=== PATIENT | male | born 1980 | race Caucasian/White ===

== ENCOUNTER 2024-01-26 17:25 | Emergency (ER) | payer BC, SELFPAY ==
--- NOTE | ~2024-01-26 | CT_ITS ---
EXAMINATION: CT ABDOMEN AND PELVIS WITHOUT CONTRAST CLINICAL INFORMATION: flank pain. COMPARISON: No pertinent prior studies are available for comparison. TECHNIQUE: Multidetector volumetric imaging was performed from the superior aspect of the liver through the pubic symphysis without contrast per renal stone protocol. Sagittal and coronal reformatted images were obtained on the technologist workstation. This CT examination was performed using dose optimization techniques as appropriate, variously including the following: *Automated exposure control *Adjustment of mA and/or kV according to patient size (this includes techniques or standardized protocols for targeted exams where dose is matched to indication/reason for exam; i.e. extremities or head) *Use of iterative reconstruction technique DLP: 800 mGy-cm. FINDINGS: LUNG BASES: The visualized lung bases are unremarkable. LIVER, GALLBLADDER, BILIARY TREE: The non-contrast liver is normal in size, shape, and attenuation. No focal hepatic lesion or biliary ductal dilatation is present. The gallbladder is contracted but otherwise unremarkable with no evidence of radiopaque gallstones, gallbladder wall thickening, or obvious pericholecystic inflammatory changes. PANCREAS: Unremarkable. SPLEEN: Unremarkable. ADRENAL GLANDS: Unremarkable. KIDNEYS AND URETERS: The kidneys are normal in size, shape, and attenuation. No hydronephrosis, hydroureter, or perinephric stranding. No calculi. BLADDER: Unremarkable. GASTROINTESTINAL TRACT: The small and large bowel are unremarkable. The appendix is unremarkable. ABDOMINAL WALL: No significant hernia is appreciated. Hernia mesh anchors seen anteriorly LYMPHOVASCULAR STRUCTURES: No lymphadenopathy. The aorta is unremarkable.. PELVIC VISCERA: Unremarkable. OSSEUS STRUCTURES: Unremarkable. CT/CT abdomen pelvis wo IV con IMPRESSION: No acute intra-abdominal process seen. No renal or ureteric calculi. No obstructive changes to the kidneys.
[2024-01-26 17:27] VITALS: BP 140/89; PULSE 110; RESP 17; TEMP 36.6; O2SAT 97; BMI 33.6
--- NOTE | 2024-01-26 17:27 | ED_ITS ---
HPI - General Adult General Chief complaint: Back Pain/Injury Stated complaint: right kidney pain Time Seen by Provider: 01/26/24 21:10 Source: patient, RN notes reviewed and old records reviewed Mode of arrival: ambulatory Limitations: no limitations History of Present Illness ED Provider: Jocelyne SHAW narrative: 43-year-old male presents for evaluation of right flank pain. He does state that his pain started on the left side and is now on the right side but no longer on the left. He reports he has to sleep on his side to improve the pain Patient believes he is having ?kidney pain. ? Said he has a long history of chronic back pain He reports that 1 or 2 times per year ?I threw my back out and can not move for a week. ? He states that he is having mild back pain complaint that my however his pain seems higher than usual He also reports that when he tries to urinate his pain seems to be worse Patient also reports that he has a history of difficulty urinating including ?getting up in the middle of the night at least 2 or 3 times to pee. ? He denies any numbness, tingling, weakness Denies any difficulty moving his bowels Patient states that he is going on vacation in about 10 days and wants to make sure he did not have a urine issue for going. He denies any fevers, chills, recent trauma Denies any heavy lifting He does note that his pain is worse with movement especially bending over Related Data Previous Rx's ?Medication ?Instructions ?Recorded dexamethasone 4 mg tablet 4 mg PO BID #6 tabs 01/26/24 tamsulosin 0.4 mg capsule 0.4 mg PO DAILY #21 caps 01/26/24 Allergies Allergy/AdvReac Type Severity Reaction Status Date / Time No Known Allergies Allergy Verified 01/26/24 17:31 Review of Systems 2 Constitutional: Constitutional: Denies body ache(s), Denies chills, Denies fever(s), Denies frequent falls and Denies headache(s) Eyes: Eyes: Denies blurry vision ENT: Denies vertigo, Denies headache(s), Denies neck pain and Denies sore throat Cardiovascular: Cardiovascular: Denies chest pain and Denies dyspnea Respiratory: Respiratory: Denies cough and Denies dyspnea Gastrointestinal: Gastrointestinal: Denies abdominal pain, Denies nausea and Denies vomiting Genitourinary: Genitourinary: Denies hematuria, Reports difficulty urinating, Denies genital pain, Denies dysuria, Reports flank pain, Reports nocturia and Denies testicular pain Musculoskeletal: Musculoskeletal: Reports back pain and Denies neck pain Integumentary/Breasts: Skin/Breast: Denies rash Neurologic: Denies vertigo, Denies frequent falls and Denies headache(s) PMFSH Social History Social History Do you have a plan to hurt others: No Plan Physical Exam ED Vital Signs: Vital Signs - 24 hr 01/26/24 17:27 Temperature 97.9 F Pulse Rate 110 H Respiratory Rate 17 Blood Pressure 140/89 H Pulse Oximetry 97 Oxygen Delivery Method Room Air BMI result Body Mass Index 33.6 Const General: healthy appearing, comfortable, no acute distress, alert and awake Nutritional Appearance: well nourished Orientation/consciousness: patient oriented x3 HENMT Head: Yes normocephalic and Yes atraumatic Eyes Eyelids: Yes eyelids normal Conjunctivae: conjunctivae normal Sclerae: sclerae normal Corneas: corneas normal Pupils: Equal, round and reactive pupils present EOM: EOMs intact bilaterally Neck Neck: Yes full ROM Resp Effort & Inspection: normal respiratory effort, able to speak in complete sentences and not labored Cardio Rate: regular rate Rhythm: regular rhythm GI Inspection: No distended Palpation (GI): Soft to palpation, not firm, nontender, no guarding and not rigid Back/Spine/Pelvis Other: Tenderness to the right lumbar sacral region. No spinal tenderness. No step- offs or deformities. Straight leg raise positive on the right. Skin General skin exam: elasticity normal Neuro General: patient oriented x3 Cranial nerves: Yes Equal, round and reactive pupils present and Yes Bilaterally intact EOM present Cognition (Neuro): normal cognition Motor exam (neuro): 5/5 motor strength present throughout Extrem Other: Moving all extremities well without any obvious deformities Course Course Course Narrative: RME performed by Kayleigh Henson PA-C. Patient is a 43 year old assigned male at presenting to the emergency department with right low back / flank pain. Patient states he has been having alternating low back pain and he is concerned about his kidneys. Detailed physical exam and review of systems are deferred to the nurse clinician. Labs and imaging ordered. Patient placed back in the waiting room pending room availability and results. Medical Decision Making Medical Decision Making MDM Narrative: 43-year-old male presents for evaluation of acute on chronic back pain. He was concerned that he had a kidney stone versus a urine infection. His workup was largely unremarkable. His pain seems most likely musculoskeletal in origin. The patient states he has had both back pain and urinary issues for several years. I have a very low suspicion for cauda equina syndrome as the patient is able to urinate, his strength is 5/5 bilaterally, he is ambulatory without any difficulty. There has been no trauma. His CT scan showed no acute pathology. I did discuss follow-up and that the patient may benefit from an outpatient lumbar MRI. I do not feel that he requires any emergent MRI at this time has had a low suspicion for cauda equina syndrome. The patient has had ongoing pain for years. We will treat his pain with dexamethasone and he will use [id number] medications. The patient is also willing to trial tamsulosin. He was given return precautions Differential Diagnosis Differential Diagnoses: The differential diagnosis associated with the presentation includes Acute on chronic back pain Sciatica Obstructive uropathy UTI Cauda equina syndrome less likely Lab Data [facility] Lab Attestation statement: I reviewed the patient's lab results. No leukocytosis or significant anemia. Normal platelet count. No left shift. No significant electrolyte abnormalities. The patient's BUN is just above normal at 17 but with a normal creatinine and normal GFR. Electrolytes within normal limits 01/26/24 17:53 01/26/24 17:53 Labs: Lab Results 01/26/24 01/26/24 Range/Units 17:53 19:03 WBC 8.0 (4.8-10.8) X10*3/uL RBC 4.45 L (4.60-5.80) X10*6/uL Hgb 14.3 (14.0-18.0) g/dl Hct 41.2 L (42.0-52.0) % MCV 92.6 (80.0-98.0) fL MCH 32.1 (27.0-33.0) pg MCHC 34.7 (31.0-36.0) g/dl RDW 13.2 (11.0-16.0) % Plt Count 377 (160-400) X10*3/uL MPV 9.1 L (9.4-12.4) fL Immature Gran % (Auto) 0.3 (0.0-0.4) % Neut % (Auto) 52.5 (45-73) % Lymph % (Auto) 30.4 (20-40) % [place] % (Auto) 11.1 H (2-11) % Eos % (Auto) 5.2 H (0-4) % Baso % (Auto) 0.5 (0-2) % Lymph # (Auto) 2.4 (1.2-4.9) X10*3/uL [place] # (Auto) 0.9 (0.1-1.2) X10*3/uL Eos # (Auto) 0.4 (0.0-0.4) X10*3/uL Baso # (Auto) 0.0 (0.0-0.2) X10*3/uL Abs Immat Gran (auto) 0.02 (0.00-0.03) X10*3/uL Absolute Neuts (auto) 4.2 (2.0-8.3) x10*3/uL Absolute Nucleated RBC 0.000 (0.0-0.012) X10*3/uL Nucleated RBC % (auto) 0.0 (0.0-0.2) /100WBC Sodium 141 (135-145) mmol/L Potassium 4.2 (3.3-5.1) mmol/L Chloride 107 (96-108) mmol/L Carbon Dioxide 23 (22-29) mmol/L Anion Gap 15 (12-20) BUN 17 H (9-16) mg/dL Creatinine 1.00 (0.5-1.4) mg/dL Estim Creat Clear Calc 136.2 Estimated GFR > 60 Random Glucose 115 (60-115) mg/dL Calcium 9.5 (8.4-10.2) mg/dL Magnesium 1.8 (1.6-2.6) mg/dL Total Bilirubin 0.2 (0.0-1.0) mg/dL AST 26 (5-37) U/L ALT 38 (0-40) U/L Alkaline Phosphatase 77 (39-117) U/L Total Protein 7.5 (6.5-8.0) g/dL Albumin 4.2 (3.5-5.0) g/dL Urine Color Yellow Urine Appearance Clear Urine pH 5.5 (5.0-9.0) Ur Specific [place] <= 1.005 (1.005-1.025) Urine Protein Negative (Neg-Trace) mg/dL Urine Glucose (UA) Negative (Negative) mg/dL Urine Ketones Negative (Negative) mg/dL Urine Blood Negative (Negative) Urine Nitrite Negative (Negative) Ur Leukocyte Esterase Negative (Negative) Influenza Type A (PCR) NEGATIVE (Negative) Influenza Type B (PCR) NEGATIVE (Negative) RSV RNA Qual (PCR) NEGATIVE (Negative) SARS-CoV-2 RNA (RT-PCR) NEGATIVE (Negative) Independent Interpretation I performed an independent interpretation of an: CT Scan Radiology Impression Discussion of test interpretation with radiology: I have reviewed the radiologist's reading. Radiologist Impression: CT/CT abdomen pelvis wo IV con IMPRESSION: No acute intra-abdominal process seen. No renal or ureteric calculi. No obstructive changes to the kidneys. Tests considered The following testing was considered but not selected: Discussed possible MRI of the lumbar spine but the patient's symptoms are not acute, and I have a low suspicion for cauda equina syndrome. The patient may follow-up with an outpatient lumbar MRI Discharge Plan Discharge Clinical Impression: Midline low back pain with right-sided sciatica Patient Disposition: Home, Self-Care Instructions: Acute Low Back Pain (ED) Additional Instructions: Your workup in the ER today was reassuring. Your urinalysis was clear without signs of blood or infection Your CT scan did not show any concerning abnormalities You may use Flomax daily to help with urine flow You may follow-up with Urology, Dr. King at the number provided regarding this For your back pain, I recommend taking dexamethasone twice daily for 3 days You may also use ibuprofen and Tylenol for pain Follow-up with a primary doctor when able You may benefit from an outpatient MRI due to your history of back pain Prescriptions: New dexamethasone 4 mg tablet 4 mg PO BID Qty: 6 0RF tamsulosin 0.4 mg capsule 0.4 mg PO DAILY Qty: 21 0RF Referrals: Cristi King MD [Physician] - (difficulty urinating, negative workup)
[2024-01-26 18:01] LABS: MANUAL DIFF FLAG NO
[2024-01-26 18:03] LABS: Basophils Percent Auto 0.5 % (0-2); Eosinophils Absolute Auto 0.4 X10*3/uL (0.0-0.4); Eosinophils Percent Auto 5.2 % (0-4); Hematocrit 41.2 % (42.0-52.0); Hemoglobin 14.3 g/dl (14.0-18.0); Imm Gran Abs Auto 0.02 X10*3/uL (0.00-0.03); Imm Gran Pct Auto 0.3 % (0.0-0.4); Lymphocytes Absolute Auto 2.4 X10*3/uL (1.2-4.9); Lymphocytes Percent Auto 30.4 % (20-40); Mean Corpuscular HGB Conc 34.7 g/dl (31.0-36.0); Mean Corpuscular Hemoglobin 32.1 pg (27.0-33.0); Mean Corpuscular Volume 92.6 fL (80.0-98.0); Mean Platelet Volume 9.1 fL (9.4-12.4); Monocytes Absolute Auto 0.9 X10*3/uL (0.1-1.2); Monocytes Percent Auto 11.1 % (2-11); Neutrophils Absolute Auto 4.2 x10*3/uL (2.0-8.3); Neutrophils Percent Auto 52.5 % (45-73); Platelet Count 377 X10*3/uL (160-400); Red Blood Count 4.45 X10*6/uL (4.60-5.80); Red Cell Distribution Width 13.2 % (11.0-16.0)
[2024-01-26 18:22] LABS: Alanine Aminotransferase 38 U/L (0-40); Albumin Level 4.2 g/dL (3.5-5.0); Alkaline Phosphatase 77 U/L (39-117); Anion Gap 15 (12-20); Aspartate Amino Transferase 26 U/L (5-37); Bilirubin Total 0.2 mg/dL (0.0-1.0); Blood Urea Nitrogen 17 mg/dL (9-16); Calcium 9.5 mg/dL (8.4-10.2); Carbon Dioxide 23 mmol/L (22-29); Chloride 107 mmol/L (96-108); Creatinine Clr Calc Pharmacy 136.2; Estimated Glomerular Filt Rate > 60; Glucose Random 115 mg/dL (60-115); Magnesium 1.8 mg/dL (1.6-2.6); Potassium 4.2 mmol/L (3.3-5.1); Sodium 141 mmol/L (135-145); Total Protein 7.5 g/dL (6.5-8.0)
[2024-01-26 18:52] LABS: Influenza A PCR NEGATIVE (Negative); Influenza B PCR NEGATIVE (Negative); Resp Syncy Virus RNA Qual PCR NEGATIVE (Negative); SARS COV2 PCR INHOUSE NEGATIVE (Negative)
[2024-01-26 19:18] LABS: Appearance Urine Clear; Color Urine Yellow; Glucose Urine UA Negative (Negative); Leukocyte Esterase Urine Negative (Negative); Nitrite Urine Negative (Negative); PH 5.5 (5.0-9.0); Specific Gravity - Urine <= 1.005 (1.005-1.025); Urine Blood Negative (Negative); Urine Ketones Negative (Negative); Urine Protein Negative (Neg-Trace)
--- NOTE | 2024-01-26 21:37 | PC.NURSE ---
Evaluated by cleared for [facility].
[2024-01-26 21:42] VITALS: BP 132/75; PULSE 89; RESP 18; TEMP 37.1; O2SAT 97
[2024-01-26 21:45] VITALS: BP 132/75; PULSE 89; RESP 18; TEMP 37.1; O2SAT 97
== END 2024-01-26 21:45 | disposition home or self-care (01) ==
LOC: HO.ED 21:42
PROVIDERS: Physician Assistant Medical; Emergency Provider Emergency Medicine
DX: M54.41 Lumbago with sciatica, right side (principal); N23 Unspecified renal colic; Z03.818 Encounter for observation for suspected exposure to other biological agents ruled out; Z79.899 Other long term (current) drug therapy
CPT/HCPCS: 0241U; 74176; 80053; 81003; 83735; 85025; 99283; 99284

== ENCOUNTER 2024-03-26 10:52 | Outpatient (AMB) | payer BC, SELFPAY ==
--- NOTE | 2024-03-26 10:56 | MHC.OFFVIS ---
Intake Visit Reasons: history of difficult urination Intake Note: Patient is present for HISTORY OF DIFFICULT URINATION Urology Medication:TAMSULOSIN Antibiotic Allergy:NONE Blood Thinner:NONE TODAY'S PVR:0ML'S Sprinkling System Irrigator Required: No Allergies No Known Allergies Allergy (Verified 04/05/24 11:26) HPI Comments Details: Mauri is a 44-year-old male who is here for evaluation for BPH symptoms. He complains of urinary frequency, hesitancy nocturia 2-3 times. AUA score 14. He denies dysuria or hematuria. I have discussed trial of tamsulosin. Discussed Avoid dietary bladder irritants, limit caffeine beverages. [facility] Medical History (Updated 04/25/24 @ 16:11 by Zahira Montesinos MD) Migraines Constipation Back injury ACL injury tear Arthritis Asthma Surgical History (Updated 04/05/24 @ 12:17 by Alex Lemons MA) History of repair of ACL History of hernia surgery History of knee surgery Family History (Updated 04/05/24 @ 12:21 by Alex Lemons MA) Mother Substance abuse Hypertension Cardiovascular disease Clotting disorder Lung cancer Alcoholism Father Substance abuse Hypertension High cholesterol Cardiovascular disease Alcoholism Maternal Grandfather Hypertension High cholesterol Cardiovascular disease Alcoholism Paternal Grandfather Hypertension High cholesterol Cardiovascular disease Alcoholism Mental health disorder Maternal Grandmother Cancer Paternal Grandmother Lung cancer Social History (Updated 04/05/24 @ 11:14 by Alex Lemons MA) Household Members: Significant Other and Other Both parents involved: No Caregiver staying overnight: No Housing: House Are you a primary animal care taker to a significant other at home: No Do you presently have visiting nurse or other home services: No 75 years or older and lives alone: No Alcohol intake: current Alcohol intake frequency: a few times a month Patient Tobacco Use Status: Never used Tobacco e-Cigarette/Vaping Use: Never Used service: No Current occupational status: employed 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 Cognitive needs: No Hearing needs: No Vision needs: Yes (wear glasses) Review of Systems Const All systems reviewed & are unremarkable except as noted in HPI and below Reports no additional complaints Eyes Reports no additional complaints ENT Reports no additional complaints Card Reports no additional complaints Resp Reports no additional complaints GI Reports no additional complaints Reports as per HPI Musc Reports no additional complaints Skin/Breast Reports system reviewed and no additional complaints, except as documented Neuro Reports no additional complaints Psych Reports no additional complaints Endo Reports no additional complaints Dennys/Lymph Reports no additional complaints Aller/Immun Reports no additional complaints Physical Exam Const General: healthy appearing, no acute distress and well developed Orientation/consciousness: patient oriented x3 HEENT Head: Yes normocephalic and Yes atraumatic Eyes Conjunctivae: conjunctivae normal Neck Neck: Yes normal visual inspection Chest Chest palpation & inspection: normal inspection of the chest Resp Effort & Inspection: normal respiratory effort Cardio Rate: regular rate GI Inspection: Yes normal to inspection Neuro General: patient oriented x3 Extrem General: No pedal edema Psych Appearance: grossly normal Affect: normal affect Office Procedures Post Void Residual Post Residual Void Post Void Residual (PVR): 0 [id number] Void Residual by ultrasound Assessment & Plan Assessment & Plan (1) BPH loc w urin obs/LUTS: Code(s): N40.1 - Benign prostatic hyperplasia with lower urinary tract symptoms Category: Medical (2) Nocturia: Code(s): R35.1 - Nocturia Category: Medical Plan tamsulosin. Avoid dietary bladder irritants, limit caffeine beverages. FU 6 months. Medications: Refilled tamsulosin 0.4 mg PO DAILY 90 caps 3RF Patient Instructions: The patient had an opportunity to ask questions regarding treatment plan. The patient expressed understanding and agreement with the above treatment plan. The patient is aware they should contact our office by phone for worsening of their current condition or the appearance of new symptoms. Compliance is encouraged with any medications and followup testing that is ordered. It is a privilege to be allowed the opportunity to participate in the urologic care of your patient. If you have any questions or concerns regarding treatment for the above conditions please do not hesitate to contact me. The office telephone contact is [phone]. This note is constructed in part using voice recognition software. While every effort has been made to ensure accuracy [facility] office supervisor errors may have been included. Yours sincerely, Zahira Montesinos MD Coding Level of Care Code New Pt Level 4 (39777) Diagnoses BPH loc w urin obs/LUTS N40.1 Nocturia R35.1 CPT Codes Post Residual Void - PVR CPT Code: 33012-Eely Void Residual by ultrasound ([id number])
== END 2024-03-26 11:47 | disposition home or self-care (01) ==
PROVIDERS: Visit Provider Urology
DX: N40.1 Benign prostatic hyperplasia with lower urinary tract symptoms (principal); R35.1 Nocturia
CPT/HCPCS: 99204

== ENCOUNTER → 2024-03-26 10:52 | Outpatient (BNVA) | payer BC, SELFPAY | PROVIDERS: Visit Provider Urology | DX: N40.1 Benign prostatic hyperplasia with lower urinary tract symptoms (principal); N13.8 Other obstructive and reflux uropathy; R35.1 Nocturia; Z79.899 Other long term (current) drug therapy | CPT/HCPCS: 51798 ==

== ENCOUNTER 2024-03-27 11:59 | Outpatient (AMB) | payer BC, SELFPAY ==
[2024-03-27 11:59] VITALS: BP 122/80; PULSE 75; TEMP 36.7; O2SAT 97
--- NOTE | 2024-03-27 11:59 | MHC.OFFWIV ---
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 Reports that yesterday he was cleaning his ears out and when he pulled the Q-tip how he thought there was some cotton missing from the end of the Q-tip. The ear itself feels fine. He was wants to make sure there is nothing stuck in his ear Exam Awake alert oriented, no acute distress External ear canal clear, a very small scab noted at the 9 o'clock position, TM is intact and clear, no foreign bodies. Plan Patient reassured that there was no foreign body present in the ear today. There is a small area that looks like perhaps trauma from the Q-tip itself. No further management is needed for this. PFSH Social History Patient Tobacco Use Status: Never used Tobacco Physical Exam Vital Signs: Last Vital Signs Temp 98.0 F 03/27/24 11:59 Pulse 75 03/27/24 11:59 BP 122/80 03/27/24 11:59 Pulse Ox 97 03/27/24 11:59 Assessment & Plan Assessment & Plan (1) Foreign body sensation in right ear canal: Code(s): R09.A9 - Foreign body sensation, other site Plan: . Coding Level of Care Code Est Pt Level 3 (77987) Diagnoses Foreign body sensation in right ear canal R09.A9
== END 2024-03-27 13:51 | disposition home or self-care (01) ==
PROVIDERS: Visit Provider Nurse Practitioner Family
DX: R09.A9 Foreign body sensation, other site (principal)

== ENCOUNTER 2024-04-05 11:01 | Outpatient (AMB) | payer BC, SELFPAY ==
--- NOTE | 2024-04-05 11:03 | A.OFFPC_ITS ---
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 Intake Note: new patient to establish care Allergies No Known Allergies Allergy (Verified 04/05/24 11:26) Medication List - Last Reconciled 04/05/24 by Ayesha Diaz, FLANGE MACHINE OPERATOR-BC dextroamphetamine-amphetamine 10 mg 1 tab PO DAILY dextroamphetamine-amphetamine 20 mg ER 1 cap PO QAM tamsulosin 0.4 mg PO DAILY Tobacco use date assessed: 04/05/24 Dental Screening Dental Screen Date: 04/05/24 Did you have a dental visit in the last 12 months?: Yes Did you have a dental problem in the last 6 months where you did not have access to dental care?: No Was dental information given to patient?: Patient has dentist HPI HPI Comments History of Present Illness Details 44 y/o M with nocturia, chronic low back pain, obesity, anemia, ADHD, GERD , mild intermittent asthma, osteoarthritis of hands and knees, migraine headaches s/p hernia repair with mesh 2012, corrective surgery to left knee, ACL repair left knee [facility] General Family history: Maternal grandfather with hypertension hyperlipidemia heart disease and alcoholism, maternal grandmother with blood cancer, mom with hypertension, cardiovascular disease, clotting disorder, lung cancer and alcoholism, paternal grand mother with lung cancer, paternal grandfather with hypertension, hyperlipidemia, heart disease, alcoholism and psychiatric disease, dad with high blood pressure hyperlipidemia heart disease and alcoholism Health Maintenance: Tdap 12/21/20 Flu 01/2024 HPV 1 vaccine after age 14, interested in completing course. Advised to complete at local pharmacy. Colon - referred for first colon today Specialist [facility] Here today to est care Previous PCP in [place] - PCP retired. No old records available. ADHD - active w outside prescriber. Endorses hx of trauma but does not disclose. Had counseling in the past. Interested in pursuing. GERD had one GI consult and did not f/u d/t COVID. s/p EGD and reports this was WNL. Was supposed to have stool sample done but did not get this done. If eats too fast, throws up. If eats slow or avoids triggers he does ok. Was rx PPI in the past, Otc, did not follow through. Has never had colon Numbness in big toes worse on R. Went to ED 01/2024 for low back pain. He reports always having back issues. The parasthesias of toes has been ongoing for some time. Describes as feeling holes in socks. Has never had back surgery. Has never had MRI for back. Denies red flag sx assoc w/ back pain. Migraines w/o aura, did see neuro in the past. Wears glasses. Trigger is dehydration, over exertion, etoh. Has never been on meds just OTC. Would like Rx Wakes at times w/ headaches. Has never had a sleep study. Would like to hold o ff right now. Exam Awake alert NAD PERRLA, EOMI, Glasses Neck FROM RRR LS CTAB, dim throughout Abd soft, nontender, normoactive BS x 4 No paraspinal or spinal tenderness w/ palpation, negative SLR bilat, normal strength and one of BLE, + PP bilat, No edema, abnormal sensation to bilat great toes otherwise normal sensation Anxious, scattered in thoughts, pleasant and cooperative Plan: Refer to counseling through community [facility] Start omprazole 40mg QD. Refer to GI for GERD and first screening colon Start imitrex PRN for headaches. COnsider sleep study. Screening labs today. MRI of L spine. HSV vaccine series completion at pharmacy RTO 6 weeks to fu on results of MRI and labs, sooner PRN This note is constructed using voice recognition software. While every effort has been made to ensure accuracy in cornetist, still errors may have been included Sometimes, these errors may affect the content or meaning of the given sentence . Total time spent caring for the patient today was 50 minutes. This includes time spent before the visit reviewing the chart, time spent during the visit, and time spent after the visit on documentation [facility] Medical History (Updated 04/05/24 @ 12:17 by Alex Lemons MA) Migraines Constipation Back injury ACL injury tear Arthritis Asthma Surgical History (Updated 04/05/24 @ 12:17 by Alex Lemons MA) History of repair of ACL History of hernia surgery History of knee surgery Family History (Updated 04/05/24 @ 12:21 by Alex Lemons MA) Mother Substance abuse Hypertension Cardiovascular disease Clotting disorder Lung cancer Alcoholism Father Substance abuse Hypertension High cholesterol Cardiovascular disease Alcoholism Maternal Grandfather Hypertension High cholesterol Cardiovascular disease Alcoholism Paternal Grandfather Hypertension High cholesterol Cardiovascular disease Alcoholism Mental health disorder Maternal Grandmother Cancer Paternal Grandmother Lung cancer Social History (Updated 04/05/24 @ 11:14 by Alex Lemons MA) Household Members: Significant Other and Other Both parents involved: No Caregiver staying overnight: No Housing: House Are you a primary certified social workers in health care to a significant other at home: No Do you presently have visiting nurse or other home services: No 75 years or older and lives alone: No Alcohol intake: current Alcohol intake frequency: a few times a month Patient Tobacco Use Status: Never used Tobacco e-Cigarette/Vaping Use: Never Used service: No Current occupational status: employed 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 1. Little interest or pleasure in doing things: several days 2. Feeling down, depressed, or hopeless: not at all 3. Trouble falling or staying asleep, or sleeping too much: not at all 4. Feeling tired or having little energy: not at all 5. Poor appetite or overeating: not at all 6. Feeling bad about yourself - or that you are a failure or have let yourself or your family down: not at all 7. Trouble concentrating on things, such as reading the newspaper or watching television: several days 8. Moving or speaking so slowly that other people could have noticed. Or the opposite - being so fidgety or restless that you have been moving around a lot more than usual: not at all 9. Thoughts that you would be better off or of hurting yourself in some way: not at all Total score: 2 Depression Screening Interpretation: Negative Depression Screening Done: Yes 61897 - PHQ-9 Billing: Yes Source: Developed by Drs. Fred De La Garza, Jenny Craig, Neal Collier and colleagues, with an educational klaus from [employer]. Thrive Questionnaire Date Thrive assessed: 04/05/24 I am a: Patient What is your living situation today?: I have a steady place to live Within the past 12 months, did the food you bought not last and you didn't have the money to get more?: Never true Within the past 12 months, did you worry whether your food would run out before you got money to buy more?: Never true Do you have trouble paying for medicines?: No Do you have trouble getting transportation to medical appointments?: No Do you have trouble paying your heating and electricity bill?: No Do you have trouble taking care of your child, family member or friend?: No Do you have trouble with day-to-day activities such as bathing, preparing meals, shopping, managing finances, etc.?: No Are you currently unemployed and looking for a job?: No Are you interested in more education?: I choose not to answer this question Please select the resources that you would like help with: None Currently or been in a relationship where the following occur: No concerns reported THRIVE Score: 0 AUDIT C Alcohol Use Questionnaire (AUDIT-C) 1. How often do you have a drink containing alcohol?: Monthly or less 2. How many drinks containing alcohol do you have on a typical day when you are drinking?: 1 or 2 3. How often do you have six or more drinks on one occasion?: Less than monthly Total Score: 2 Score Reviewed/Action Taken: Yes RONALDO-7 AMB Questionnaire RONALDO-7 Date RONALDO - 7 assessed: 04/05/24 Feeling nervous, anxious, or on edge: 1 = Several days Not being able to stop or control worryin = Not at all Worrying too much about different things: 1 = Several days Trouble relaxin = Not at all Being so restless that it is hard to sit still: 0 = Not at all Feeling afraid as if something awful might happen: 0 = Not at all Source: Developed by Drs. Fred De La Garza, Jenny Craig, Neal Collier and colleagues, with an educational klaus from [employer]. RONALDO-7 Assessment Billing RONALDO-7 Assessment Tool: RONALDO-7 Assessment 33192 Physical exam (Primary Care) Vital Signs: Last Vital Signs Pulse 91 04/05/24 11:10 Resp 15 04/05/24 11:10 BP 114/64 04/05/24 11:44 Pulse Ox 95 04/05/24 11:10 Oxygen Delivery Method Room Air 04/05/24 11:10 BMI result Body Mass Index 34.5 BMI Assessment/Plan discussion: High BMI High, discussed plan: lifestyle Tobacco/Smoking Status: Tobacco use Status Tobacco use date assessed 04/05/24 04/05/24 11:15 Patient Tobacco Use Status Never used Tobacco 04/05/24 11:14 e-Cigarette/Vaping Use Never Used 04/05/24 11:15 PHQ-9: PHQ-9 Score PHQ-9: Total score 2 04/05/24 12:21 Depression Screening Interpretation: Negative Thrive Assessment: Date of Thrive Assessment Date Thrive assessed 04/05/24 04/05/24 11:06 Currently or been in a relationship where the following occur: No concerns reported Coding Level of Care Code New Pt Level 4 (55526) Complex EM visit Add On G2211 Diagnoses Chronic midline low back pain without sciatica M54.50; G89.29 Back pain laterality: midline Sciatica presence: without sciatica Bilateral leg paresthesia R20.2 Attention deficit hyperactivity disorder (ADHD), predominantly inattentive type F90.0 Attention deficit-hyperactivity disorder type: predominantly inattentive Psychological trauma history Z91.49 Gastroesophageal reflux disease with esophagitis without hemorrhage K21.00 Esophagitis bleeding: without hemorrhage Esophagitis presence: with esophagitis Screen for colon cancer Z12.11 HPV vaccine counseling Z71.85 Migraine without aura and without status migrainosus, not intractable G43.009 Intractability: not intractable Status migrainosus presence: without status migrainosus Obesity, Class I, BMI 30.0-34.9 (see actual BMI) E66.811 BMI 34.0-34.9,adult Z68.34 Additional Codes RONALDO-7 Assessment Billing - RONALDO-7 Assessment Tool: RONALDO-7 Assessment 20079 ([id number]) Assessment & Plan Assessment & Plan (1) Chronic low back pain: Code(s): M54.50 - Low back pain, unspecified; G89.29 - Other chronic pain Category: Medical Qualifiers: Back pain laterality: midline Sciatica presence: without sciatica Qualified Code(s): M54.50 - Low back pain, unspecified; G89.29 - Other chronic pain Plan: . (2) Bilateral leg paresthesia: Code(s): R20.2 - Paresthesia of skin Category: Medical Plan: . (3) ADHD: Code(s): F90.9 - Attention-deficit hyperactivity disorder, unspecified type Category: Medical Qualifiers: Attention deficit-hyperactivity disorder type: predominantly inattentive Qualified Code(s): F90.0 - Attention-deficit hyperactivity disorder, predominantly inattentive type Plan: . (4) Psychological trauma history: Code(s): Z91.49 - Other personal history of psychological trauma, not elsewhere classified Category: Medical Plan: . (5) GERD (gastroesophageal reflux disease): Code(s): K21.9 - Gastro-esophageal reflux disease without esophagitis Category: Medical Qualifiers: Esophagitis bleeding: without hemorrhage Esophagitis presence: with esophagitis Qualified Code(s): K21.00 - Gastro-esophageal reflux disease with esophagitis, without bleeding Plan: . (6) Screen for colon cancer: Code(s): Z12.11 - Encounter for screening for malignant neoplasm of colon Category: Medical Plan: . (7) HPV vaccine counseling: Code(s): Z71.85 - Encounter for immunization safety counseling Category: Medical Plan: . (8) Migraine without aura: Code(s): G43.009 - Migraine without aura, not intractable, without status migrainosus Category: Medical Qualifiers: Intractability: not intractable Status migrainosus presence: without status migrainosus Qualified Code(s): G43.009 - Migraine without aura, not intractable, without status migrainosus Plan: . (9) Obesity, Class I, BMI 30.0-34.9 (see actual BMI): Code(s): E66.811 - Obesity, class 1 Category: Medical Plan: . (10) BMI 34.0-34.9,adult: Code(s): Z68.34 - Body mass index [BMI] 34.0-34.9, adult Category: Medical Plan: . Orders: Orders Comprehensive Met. Panel Today G89.29 - Other chronic pain, M54.50 - Low back pain, unspecified, R20.2 - Paresthesia of skin Microalbumin, Random (w Creat) Today G89.29 - Other chronic pain, M54.50 - Low back pain, unspecified, R20.2 - Paresthesia of skin PSA, Ultra Sensitive Today G89.29 - Other chronic pain, M54.50 - Low back pain, unspecified, R20.2 - Paresthesia of skin TSH reflex Free T4 Today G89.29 - Other chronic pain, M54.50 - Low back pain, unspecified, R20.2 - Paresthesia of skin Vitamin B12 and Folate Today G89.29 - Other chronic pain, M54.50 - Low back pain, unspecified, R20.2 - Paresthesia of skin Vitamin D 25-OH Total Today G89.29 - Other chronic pain, M54.50 - Low back pain, unspecified, R20.2 - Paresthesia of skin Complete Blood Count no Diff Today G89.29 - Other chronic pain, M54.50 - Low back pain, unspecified, R20.2 - Paresthesia of skin Hemoglobin A1c Today G89.29 - Other chronic pain, M54.50 - Low back pain, unspecified, R20.2 - Paresthesia of skin IRON PROFILE Today G89.29 - Other chronic pain, M54.50 - Low back pain, unspecified, R20.2 - Paresthesia of skin Lipid Panel Today G89.29 - Other chronic pain, M54.50 - Low back pain, unspecified, R20.2 - Paresthesia of skin MR lumbar spine wo con Today G89.29 - Other chronic pain, M54.50 - Low back pain, unspecified, R20.2 - Paresthesia of skin Referrals Nurse Navigator Referral F90.9 - Attention-deficit hyperactivity disorder, unspecified type, Z91.49 - Other personal history of psychological trauma, not elsewhere classified Gastroenterology Referral K21.9 - Gastro-esophageal reflux disease without esophagitis, Z12.11 - Encounter for screening for malignant neoplasm of colon Medications: New omeprazole 40 mg PO DAILY 90 caps 1RF sumatriptan succinate (Imitrex) take 1 tab at onset of headache; if no relief may repeat 1 tab after at least 2 hrs; max = 4 tabs/24 hr PO 10 tabs 2RF Patient Instructions: Walk-In Care (Urgent Care): We Make it Easy Walk-in for urgent medical issues such as: ? Seasonal Allergies ? Insect Bites ? Cough ? Diarrhea ? Acute Asthma Attacks ? Back, Knee or Joint Pain ? Ear Infection ? Fever without a Rash ? Headaches ? Nausea ? [place] Eye, Rash or Skin Irritation ? Sore Throat ? Sports Physicals ? Vomiting Most insurances are accepted. Patients do not need to be part of the [facility] to seek care at the walk-in clinic. Locations [address] [facility] , [place] [address] ? [phone] [facility] Walk-In Care in [place] provides services to ages 18 and over. Open Friday-Friday: 8 a.m. to 5 p.m. and Friday: 9 a.m. to 3 p.m.* *Hours may vary due to staffing availability. To confirm Walk-In Care hours in [place], please call [phone]. [address] [place] [address] ? [phone] [facility] Walk-In Care in [place] provides services to ages 12 and over. Open Friday-Friday: 8 a.m. to 5 p.m. Hours may vary due to staffing availability. To confirm Walk-In Care hours in [place], please call [phone]. LABORATORY SERVICES: [facility] Lab ? Primary Location [address] [place] [address] Friday through Friday 6:00 AM ? 5:00 PM Friday 7:00 AM ? 11:00 AM* [phone] [facility] Lab is centrally located near the front entrance of the [facility] for easy outpatient access. Convenient parking is provided for outpatients. *Hours may vary due to staffing availability. To confirm Laboratory hours for any location, please call [phone]. Offsite Location For your convenience, we offer offsite laboratory draw stations at the following locations: [address] [place] [address] ? [address], [address] [place] [address] Friday through Friday 7:30 AM ? 1:00 PM* [phone] *Hours may vary due to staffing availability. To confirm Laboratory hours for any location, please call [phone]. [place] ? [address] Friday through Friday 6:00 AM ? 3:30 PM* Friday 6:30 AM ? 3 PM* [phone] *Hours may vary due to staffing availability. To confirm Laboratory hours for any location, please call [phone]. [address] [facility] Friday through Friday 7:30 AM ? 4:00 PM* [phone] *Hours may vary due to staffing availability. To confirm Laboratory hours for any location, please call [phone]. [address] [facility] Friday through 9:00 AM ? 4:00 PM* *Hours may vary due to staffing availability. To confirm Laboratory hours for any location, please call [phone]. Appointments are not necessary. Walk-ins are welcome. Like all the departments throughout the [facility], our Lab undergoes frequent reviews to ensure the quality and accuracy of test results, and our staff takes special pride in its status as a nationally accredited facility. Patient Portal: ONE PATIENT. ONE RECORD. BETTER CARE. [facility] has a fully integrated, cutting- edge mobile electronic health information system that has revolutionized the way we care for our patients and manage our organization. This system improves communication and coordination enabling us to provide safe, higher-quality care, and an overall positive experience for staff and patients. Our first priority, as always, is to deliver the highest quality care possible. The system is running in the background supporting that priority. This portal is for all [facility] services and practices. If you are experiencing any technical difficulties with enrolling or logging into the Patient Portal please complete the [facility] Patient Portal Technical Support Form. [facility] now offers a new secure on-line interactive tool for patients to review their health information ? ?Patient Portal. This interactive web portal will enable patients and their families to take an active role in their care by providing easy, secure access to their health information via the internet. The Patient Portal provides patients with instant access to their health information, including laboratory results, medications, allergies, demographic information, visit history, and more. In addition to managing their own care, parents and health care proxies with authorized consent will appreciate the ability to access the records of those individuals for whom they provide care. Please note: if you wish to gain access (Proxy) to another patient?s portal, you will be required to come to the Medical Records Department in person at [facility]. Both the patient giving proxy access and the proxy will need to provide photo identification and complete the appropriate authorization. The Patient Portal also allows track their appointments online. The [facility] Patient Portal also saves patients time by allowing them to submit updates to their demographic and contact information prior to their visits. Portal email notifications will also alert patients to any new activity on their portal, such as test results and new appointments. In order to initially enroll in the [facility] Patient Portal, you will need to enter some required information including the following: * your [facility] Medical Record number * your personal home email address * name * date of Please note: In order to enroll in the [facility] Patient Portal, we need to have your email address on file in your electronic medical record. ?The email address needs to be specific for one person (yourself) in order for your Portal enrollment to be successful. ?You can update your email address in person with our Registration staff when you are registering for a hospital visit. ?Otherwise, you will need to come to the Health Information Management (Medical Records) Department at [facility]. ?We are open from Friday ? Friday from 7:30 a.m. ? 4:30 p.m. ?You will be required to present a photo id. Once you have successfully enrolled in the Patient Portal, you will receive a one-time user id and password for the Portal, sent to your email address. ?This will allow you to log into the Patient Portal within 99 hrs and reset your own logon id and password, and define personal security questions. ?Once your permanent login and password have been set, you can log into the [facility] Patient Portal at any time via the blue button above or from the Portal Logon button on any page of the [facility] website. [facility] encourage all of our patients to enroll in Patient Portal as it presents a valuable opportunity for patients and their families to actively participate in their care and stay healthy Welcome to [facility]. ?We look forward to working with you.
[2024-04-05 11:10] VITALS: BP 140/78; PULSE 91; RESP 15; O2SAT 95; BMI 34.5
[2024-04-05 11:44] VITALS: BP 114/64
== END 2024-04-05 11:53 | disposition home or self-care (01) ==
PROVIDERS: Visit Provider Nurse Practitioner Family
DX: M54.50 Low back pain, unspecified (principal); G89.29 Other chronic pain; R20.2 Paresthesia of skin; F90.0 Attention-deficit hyperactivity disorder, predominantly inattentive type; G43.009 Migraine without aura, not intractable, without status migrainosus; E66.811 Obesity, class 1; Z91.49 Other personal history of psychological trauma, not elsewhere classified; K21.00 Gastro-esophageal reflux disease with esophagitis, without bleeding; Z12.11 Encounter for screening for malignant neoplasm of colon; Z71.85 Encounter for immunization safety counseling; Z68.34 Body mass index [BMI] 34.0-34.9, adult

== ENCOUNTER → 2024-04-05 11:01 | Outpatient (BNVA) | payer BC, SELFPAY | PROVIDERS: Visit Provider Nurse Practitioner Family | DX: G89.29 Other chronic pain (principal); M54.50 Low back pain, unspecified; R20.2 Paresthesia of skin; F90.0 Attention-deficit hyperactivity disorder, predominantly inattentive type; K21.00 Gastro-esophageal reflux disease with esophagitis, without bleeding; G43.009 Migraine without aura, not intractable, without status migrainosus; E66.811 Obesity, class 1; Z68.34 Body mass index [BMI] 34.0-34.9, adult; Z91.49 Other personal history of psychological trauma, not elsewhere classified; Z71.85 Encounter for immunization safety counseling | CPT/HCPCS: 96127 ==

== ENCOUNTER 2024-05-21 08:24 | Outpatient (AMB) | payer BC, SELFPAY ==
--- NOTE | 2024-05-21 08:26 | A.OFFPC_ITS ---
Vital Signs 05/21/24 08:31 05/21/24 09:13 Height 6 ft 4 in Weight 283 lb BMI 34.4 BP 129/81 Blood Pressure Location Rt brachial Position Sitting Respiration 14 Pulse 102 H 90 Pulse Source Pulse Oximeter Auscultation Temp 96.6 F L Temp Source Skin Pulse Oximetry (%) 95 Oxygen Delivery Method Room Air Intake Visit Reasons: 6 weeks 30 min fu labs/MRI back Intake Note: follow up Print Color Matcher Required: No Allergies No Known Allergies Allergy (Verified 05/21/24 08:30) Medication List - Last Reconciled 05/21/24 by Ayesha Diaz, BIOMEDICAL REPAIR TECHNICIAN-BC dextroamphetamine-amphetamine 10 mg 1 tab PO DAILY dextroamphetamine-amphetamine 20 mg ER 1 cap PO QAM omeprazole 40 mg PO DAILY sumatriptan succinate (Imitrex) take 1 tab at onset of headache; if no relief may repeat 1 tab after at least 2 hrs; max = 4 tabs/24 hr PO tamsulosin 0.4 mg PO DAILY Tobacco use date assessed: 04/05/24 Dental Screening Dental Screen Date: 04/05/24 HPI HPI Comments History of Present Illness Details 44 y/o M with nocturia, chronic low back pain, obesity, anemia, ADHD, GERD , mild intermittent asthma, osteoarthritis of hands and knees, migraine headaches s/p hernia repair with mesh 2012, corrective surgery to left knee, ACL repair left knee Hospitalized for intussusception 2016 at [facility] Family history: Maternal grandfather with hypertension hyperlipidemia heart disease and alcoholism, maternal grandmother with blood cancer, mom with h ypertension, cardiovascular disease, clotting disorder, lung cancer and alcoholism, paternal grand mother with lung cancer, paternal grandfather with hypertension, hyperlipidemia, heart disease, alcoholism and psychiatric disease, dad with high blood pressure hyperlipidemia heart disease and alcoholism Health Maintenance: Tdap 12/21/20 Flu 01/2024 HPV 1 vaccine after age 14, interested in completing course. Advised to complete at local pharmacy. Colon - referred for first colon today Specialist [facility] History of Present Illness The patient is a 44-year-old male presenting with follow-up concerns for previous laboratory results and MRI. The patient has a history of Gastroesophageal Reflux Disease, for which he was started on Omeprazole. The patient reports that the medication is effective, as he has not experienced vomiting recently. Additionally, the patient has a history of migraines and was prescribed Imetrex, which he reports was highly effective in relieving headache symptoms. However, the patient has experienced difficulty in scheduling an MRI due to communication issues with the imaging center, as well as challenges with obtaining previously ordered laboratory tests. Further complicating the matter, the patient was referred to [facility] but missed an initial contact attempt from them. He expressed the need for an experienced counselor and discussed previous challenges in finding suitable mental health support. Review of Systems - Neurological System: Reports relief fr om migraines after using Imetrex. Reason for MRI: Numbness in big toes worse on R. Went to ED 01/2024 for low back pain. He reports always having back issues. The parasthesias of toes has been ongoing for some time. Describes as feeling holes in socks. Has never had back surgery. Has never had MRI for back. Denies red flag sx assoc w/ back pain. - Gastrointestinal System: Reports decre ase in vomiting symptoms with Omeprazole use. Exam Awake alert NAD PERRLA, EOMI, Glasses RRR LS CTAB, dim throughout Anxious, scattered in thoughts, pleasant and cooperative Plan - Gastroesophageal Reflux Disease: Dontae nue treatment with Omeprazole as the patient reports symptomatic relief. - Migraine: Continue Imetrex as it is ef fective in this patient's case. - Address the completion of pending labo ratory tests and MRI. Instruct patient to confirm the current status with the office staff. - Counseling referral updated for [facility], direct referral without intermediary group involvement, pending patient follow-up. Patient was informed and verbally consented to the use of an ambient scribe for clinic note documentation during this visit. Discussion Notes During the visit, I discussed the ongoing management of Gastroesophageal Reflux Disease with the patient, noting the positive response to Omeprazole. The treatment of migraines with Imetrex was also addressed, acknowledging its effectiveness. The conversation highlighted the administrative obstacles the patient faced in completing ordered diagnostics, with specific guidance to seek assistance from the office staff for MRI and laboratory tests. For mental health support, I updated the referral to ensure direct contact with [facility], addressing the patient's expressed need for an experienced counselor and emphasizing the lack of engagement with previous contact attempts. Patient Instructions - Confirm the pending MRI and lab work s tatus with office staff today. - Visit the lab for specimen collection and complete pending tests. - Call [facility] to confir m receipt of updated referral and to schedule an appointment. - Continue taking prescribed medications , Omeprazole and Imetrex, as directed. - Schedule follow-up appointment for rev iew of test results and further evaluation via telehealth in about 6 weeks, sooner PRN Total time spent caring for the patient today was 30 minutes. This includes time spent before the visit reviewing the chart, time spent during the visit, and time spent after the visit on documentation [facility] Medical History (Updated 04/25/24 @ 16:11 by Zahira Montesinos MD) Migraines Constipation Back injury ACL injury tear Arthritis Asthma Surgical History (Updated 04/05/24 @ 12:17 by Alex Lemons MA) History of repair of ACL History of hernia surgery History of knee surgery Family History (Updated 04/05/24 @ 12:21 by Alex Lemons MA) Mother Substance abuse Hypertension Cardiovascular disease Clotting disorder Lung cancer Alcoholism Father Substance abuse Hypertension High cholesterol Cardiovascular disease Alcoholism Maternal Grandfather Hypertension High cholesterol Cardiovascular disease Alcoholism Paternal Grandfather Hypertension High cholesterol Cardiovascular disease Alcoholism Mental health disorder Maternal Grandmother Cancer Paternal Grandmother Lung cancer Social History (Updated 04/05/24 @ 11:14 by Alex Lemons MA) Household Members: Significant Other and Other Both parents involved: No Caregiver staying overnight: No Housing: House Are you a primary post anesthesia care unit nurse to a significant other at home: No Do you presently have visiting nurse or other home services: No 75 years or older and lives alone: No Alcohol intake: current Alcohol intake frequency: a few times a month Patient Tobacco Use Status: Never used Tobacco e-Cigarette/Vaping Use: Never Used service: No Current occupational status: employed 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 67407 - PHQ-9 Billing: Patient declined-do not bill Source: Developed by Drs. Fred De La Garza, Jenny Craig, Neal Collier and colleagues, with an educational klaus from [employer]. Thrive Questionnaire Date Thrive assessed: 05/21/24 I am a: Patient What is your living situation today?: I have a steady place to live Within the past 12 months, did the food you bought not last and you didn't have the money to get more?: Never true Within the past 12 months, did you worry whether your food would run out before you got money to buy more?: Never true Do you have trouble paying for medicines?: No Do you have trouble getting transportation to medical appointments?: No Do you have trouble paying your heating and electricity bill?: No Do you have trouble taking care of your child, family member or friend?: No Do you have trouble with day-to-day activities such as bathing, preparing meals, shopping, managing finances, etc.?: No Are you currently unemployed and looking for a job?: No Are you interested in more education?: I choose not to answer this question Please select the resources that you would like help with: None Currently or been in a relationship where the following occur: No concerns reported THRIVE Score: 0 RONALDO-7 AMB Questionnaire RONALDO-7 Date RONALDO - 7 assessed: 04/05/24 Becoming easily annoyed or irritable: 1 = Several days Source: Developed by Drs. Ferd De La Garza, Jenny Craig, Neal Collier and colleagues, with an educational klaus from [employer]. Physical exam (Primary Care) Vital Signs: Last Vital Signs Temp 96.6 F L 05/21/24 08:31 Pulse 102 H 05/21/24 08:31 Resp 14 05/21/24 08:31 BP 129/81 05/21/24 08:31 Pulse Ox 95 05/21/24 08:31 Oxygen Delivery Method Room Air 05/21/24 08:31 BMI result Body Mass Index 34.4 Tobacco/Smoking Status: Tobacco use Status Tobacco use date assessed 04/05/24 05/21/24 08:29 Patient Tobacco Use Status Never used Tobacco 05/21/24 08:29 e-Cigarette/Vaping Use Never Used 05/21/24 08:29 Thrive Assessment: Date of Thrive Assessment Date Thrive assessed 05/21/24 05/21/24 08:33 Currently or been in a relationship where the following occur: No concerns reported Coding Level of Care Code Est Pt Level 4 (56795) Complex EM visit Add On G2211 Diagnoses Migraine without aura and without status migrainosus, not intractable G43.009 Status migrainosus presence: without status migrainosus Intractability: not intractable Chronic midline low back pain without sciatica M54.50; G89.29 Back pain laterality: midline Sciatica presence: without sciatica Bilateral leg paresthesia R20.2 Gastroesophageal reflux disease with esophagitis without hemorrhage K21.00 Esophagitis presence: with esophagitis Esophagitis bleeding: without hemorrhage Attention deficit hyperactivity disorder (ADHD), predominantly inattentive type F90.0 Attention deficit-hyperactivity disorder type: predominantly inattentive Psychological trauma history Z91.49 Assessment & Plan Assessment & Plan (1) Migraine without aura: Code(s): G43.009 - Migraine without aura, not intractable, without status migrainosus Category: Medical Qualifiers: Status migrainosus presence: without status migrainosus Intractability: not intractable Qualified Code(s): G43.009 - Migraine without aura, not intractable, without status migrainosus (2) Chronic low back pain: Code(s): M54.50 - Low back pain, unspecified; G89.29 - Other chronic pain Category: Medical Qualifiers: Back pain laterality: midline Sciatica presence: without sciatica Qualified Code(s): M54.50 - Low back pain, unspecified; G89.29 - Other chronic pain (3) Bilateral leg paresthesia: Code(s): R20.2 - Paresthesia of skin Category: Medical (4) GERD (gastroesophageal reflux disease): Code(s): K21.9 - Gastro-esophageal reflux disease without esophagitis Category: Medical Qualifiers: Esophagitis presence: with esophagitis Esophagitis bleeding: without hemorrhage Qualified Code(s): K21.00 - Gastro-esophageal reflux disease with esophagitis, without bleeding (5) ADHD: Code(s): F90.9 - Attention-deficit hyperactivity disorder, unspecified type Category: Medical Qualifiers: Attention deficit-hyperactivity disorder type: predominantly inattentive Qualified Code(s): F90.0 - Attention-deficit hyperactivity disorder, predominantly inattentive type (6) Psychological trauma history: Code(s): Z91.49 - Other personal history of psychological trauma, not elsewhere classified Category: Medical Plan . Orders: Referrals Counseling Referral F90.0 - Attention-deficit hyperactivity disorder, predominantly inattentive type, Z91.49 - Other personal history of psychological trauma, not elsewhere classified
[2024-05-21 08:31] VITALS: BP 129/81; PULSE 102; RESP 14; TEMP 35.9; O2SAT 95; BMI 34.4
[2024-05-21 09:13] VITALS: PULSE 90
== END 2024-05-21 09:06 | disposition home or self-care (01) ==
PROVIDERS: PCP Nurse Practitioner Family; Visit Provider Nurse Practitioner Family
DX: G43.009 Migraine without aura, not intractable, without status migrainosus (principal); M54.50 Low back pain, unspecified; G89.29 Other chronic pain; R20.2 Paresthesia of skin; K21.00 Gastro-esophageal reflux disease with esophagitis, without bleeding; F90.0 Attention-deficit hyperactivity disorder, predominantly inattentive type; Z91.49 Other personal history of psychological trauma, not elsewhere classified

== ENCOUNTER 2024-05-21 09:14 | Outpatient (REF) | payer BC, SELFPAY ==
[2024-05-21 11:02] LABS: Hematocrit 45.9 % (42.0-52.0); Hemoglobin 15.5 g/dl (14.0-18.0); Mean Corpuscular HGB Conc 33.8 g/dl (31.0-36.0); Mean Corpuscular Hemoglobin 31.3 pg (27.0-33.0); Mean Corpuscular Volume 92.7 fL (80.0-98.0); Mean Platelet Volume 9.5 fL (9.4-12.4); Platelet Count 396 X10*3/uL (160-400); Red Blood Count 4.95 X10*6/uL (4.60-5.80); Red Cell Distribution Width 13.5 % (11.0-16.0); White Blood Count 7.7 X10*3/uL (4.8-10.8)
[2024-05-21 11:20] LABS: Alanine Aminotransferase 50 U/L (0-40); Albumin Level 4.6 g/dL (3.5-5.0); Alkaline Phosphatase 62 U/L (39-117); Anion Gap 12 (12-20); Aspartate Amino Transferase 39 U/L (5-37); Bilirubin Total 0.6 mg/dL (0.0-1.0); Blood Urea Nitrogen 13 mg/dL (9-16); Carbon Dioxide 26 mmol/L (22-29); Chloride 106 mmol/L (96-108); Cholesterol 190 mg/dL (<200); Estimated Glomerular Filt Rate > 60; Glucose Random 102 mg/dL (60-115); HDL Cholesterol 38 mg/dL (>40); Iron 142 mcg/dL (45-160); LDL Cholesterol Calculated 122 mg/dL (<100); Percent Iron Saturation 43 % (15-50); Potassium 4.1 mmol/L (3.3-5.1); Sodium 140 mmol/L (135-145); Total Iron Binding Capacity 327 mcg/dL (228-428); Triglycerides 150 mg/dL (<150); Unsaturated Iron Binding 185 ug/dL
[2024-05-21 11:33] LABS: Estimated Average Glucose 114 mg/dL; Hemoglobin A1C 145.2639 umol/L; Hemoglobin A1c % 5.6 % (<6.0); Total Hemoglobin (HGBA1C) 3800.4061 umol/L
[2024-05-21 11:42] LABS: TSH reflex Free T4 0.49 uIU/mL (0.32-4.0)
[2024-05-21 11:58] LABS: Vitamin B12 272 pg/mL (200-900)
[2024-05-21 14:53] LABS: Creatinine Urine 267.39 mg/dL; Microalbum/Creatinine Ratio Ur 9.7 ug/mg cr (<30)
[2024-05-25 21:44] LABS: PSA, Ultra Sensitive 0.44 ng/mL
== END 2024-05-21 09:15 | disposition home or self-care (01) ==
LOC: HO.WFDLDS 09:14
PROVIDERS: Visit Provider Nurse Practitioner Family
DX: R20.2 Paresthesia of skin (principal); M54.50 Low back pain, unspecified; G89.29 Other chronic pain; Z12.5 Encounter for screening for malignant neoplasm of prostate; Z13.1 Encounter for screening for diabetes mellitus
CPT/HCPCS: 36415; 80053; 80061; 82043; 82306; 82570; 82607; 82746; 83036; 83540; 84153; 84443; 85027

== ENCOUNTER 2024-05-30 16:46 | Outpatient (REF) | payer BC, SELFPAY | END 2024-05-30 16:47 | disposition home or self-care (01) | LOC: HO.MRI 16:46 | PROVIDERS: PCP Nurse Practitioner Family; Visit Provider Nurse Practitioner Family | DX: M54.50 Low back pain, unspecified (principal); G89.29 Other chronic pain; R20.2 Paresthesia of skin | CPT/HCPCS: 72148 ==

== ENCOUNTER 2024-07-07 10:05 | Outpatient (AMB) | payer BC, SELFPAY ==
--- NOTE | 2024-07-07 10:09 | A.OFFPC_ITS ---
Intake Visit Reasons: 6 weeks telehealth FU MRI and Lab results Allergies No Known Allergies Allergy (Verified 07/07/24 10:10) Medication List - Last Reconciled 07/07/24 by Ayesha Diaz [facility]- cholecalciferol (vitamin D3) 50 mcg PO DAILY dextroamphetamine-amphetamine 10 mg 1 tab PO DAILY dextroamphetamine-amphetamine 20 mg ER 1 cap PO QAM omeprazole 40 mg PO DAILY sumatriptan succinate (Imitrex) take 1 tab at onset of headache; if no relief may repeat 1 tab after at least 2 hrs; max = 4 tabs/24 hr PO tamsulosin 0.4 mg PO DAILY Tobacco use date assessed: 07/07/24 Dental Screening Dental Screen Date: 07/07/24 Did you have a dental visit in the last 12 months?: Yes Did you have a dental problem in the last 6 months where you did not have access to dental care?: No Was dental information given to patient?: Patient has dentist HPI HPI Comments History of Present Illness Details 44 y/o M with nocturia, chronic low back pain, obesity, anemia, ADHD, GERD , mild intermittent asthma, osteoarthritis of hands and knees, migraine headaches s/p hernia repair with mesh 2012, corrective surgery to left knee, ACL repair left knee The patient is a 44-year-old male presenting with low back pain and numbness in the leg and toes. Original c/o Numbness in big toes worse on R. Went to ED 01/2024 for low back pain. He reports always having back issues. The parasthesias of toes has been ongoing for some time. Describes as feeling holes in socks. Has never had back surgery. Has never had MRI for back. Denies red flag sx assoc w/ back pain. These symptoms prompted an MRI, which was performed to evaluate his complaints. The back pain, while chronic, has not exhibited a change in severity, described by the patient as typical and manageable. However, the numbness in the toes persists. The MRI revealed compression of the nerve root at L1, potentially correlating with his sensory symptoms in the toes. Additionally, degenerative changes indicative of osteoarthritis were noted in both the lumbar and thoracic spine. The patient expressed concern about these findings and sought guidance on possible treatment options. Review of Systems - Musculoskeletal: Reports chronic low b ack pain without significant change. - Neurological: Reports persistent numbn ess in toes. Results MRI reviewed - see below. Plan - Referral to [facility]'s P ain Management team for specialist evaluation and possible interventions - Schedule a routine follow-up with dinah fontaine in three to four months for ongoing management and evaluation of back pain and numbness & chronic conditions. Fasting labs 1 week before. Patient was informed and verbally consented to the use of an ambient scribe for clinic note documentation during this visit. Discussion Notes During our telehealth visit, we reviewed the MRI findings showing L1 nerve root compression and degenerative changes in the lumbar and thoracic spine. I advised the patient that these findings help explain his persistent toe numbness but do not currently warrant surgical intervention. Instead, I recommended a referral to the pain management team to explore interventional procedures that could alleviate symptoms. We discussed coordinating routine follow-up appointments post his upcoming colonoscopy and urology visits to prevent overlap and manage healthcare appointments effectively. The patient is to await contact from the pain management team regarding scheduling and should return for a follow-up in approximately three to four months unless additional concerns arise sooner. Patient Instructions - Expect a call from [facility]'s Pain Management team to schedule an appointment. Respond promptly for timely scheduling. - Monitor symptoms and report any signif icant changes in back pain or numbness. - Follow up with me in three to four mon ths routine fu fasting labs 1 week before, sooner PRN - Collaborate healthcare visits [place] [facility] [place] and urology appointments to ensure comprehensive care. - Maintain communication via the portal for any questions or issues before the next appointment. Total time spent caring for the patient today was 20 minutes. This includes time spent before the visit reviewing the chart, time spent during the visit, and time spent after the visit on documentation, reviewing laboratory results, diagnostic imaging, medications, performing a medically necessary evaluation, counseling on diagnoses, care coordination, ordering appropriate tests, ordering appropriate medications, review of tests performed by other providers, reporting test results with the patient, communication with other healthcare providers. [facility] Medical History (Updated 05/21/24 @ 15:31 by GARY Delgadillo) Migraines Constipation Back injury ACL injury tear Arthritis Asthma Surgical History (Updated 04/05/24 @ 12:17 by Alex Lemons MA) History of repair of ACL History of hernia surgery History of knee surgery Family History (Updated 04/05/24 @ 12:21 by Alex Lemons MA) Mother Substance abuse Hypertension Cardiovascular disease Clotting disorder Lung cancer Alcoholism Father Substance abuse Hypertension High cholesterol Cardiovascular disease Alcoholism Maternal Grandfather Hypertension High cholesterol Cardiovascular disease Alcoholism Paternal Grandfather Hypertension High cholesterol Cardiovascular disease Alcoholism Mental health disorder Maternal Grandmother Cancer Paternal Grandmother Lung cancer Social History (Updated 04/05/24 @ 11:14 by Alex Lemons MA) Household Members: Significant Other and Other Both parents involved: No Caregiver staying overnight: No Housing: House Are you a primary hearing care practitioner to a significant other at home: No Do you presently have visiting nurse or other home services: No 75 years or older and lives alone: No Alcohol intake: current Alcohol intake frequency: a few times a month Patient Tobacco Use Status: Never used Tobacco e-Cigarette/Vaping Use: Never Used service: No Current occupational status: employed 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 Cognitive needs: No Hearing needs: No Vision needs: Yes (wear glasses) Questionnaire Thrive Questionnaire Date Thrive assessed: 04/05/24 I am a: Patient What is your living situation today?: I have a steady place to live Within the past 12 months, did the food you bought not last and you didn't have the money to get more?: Never true Within the past 12 months, did you worry whether your food would run out before you got money to buy more?: Never true Do you have trouble paying for medicines?: No Do you have trouble getting transportation to medical appointments?: No Do you have trouble paying your heating and electricity bill?: No Do you have trouble taking care of your child, family member or friend?: No Do you have trouble with day-to-day activities such as bathing, preparing meals, shopping, managing finances, etc.?: No Are you currently unemployed and looking for a job?: No Are you interested in more education?: I choose not to answer this question Please select the resources that you would like help with: None Currently or been in a relationship where the following occur: No concerns reported THRIVE Score: 0 RONALDO-7 AMB Questionnaire RONALDO-7 Date RONALDO - 7 assessed: 04/05/24 Source: Developed by Drs. Fred De La Garza, Jenny Craig, Neal Collier and colleagues, with an educational klaus from [employer]. Physical exam (Primary Care) Tobacco/Smoking Status: Tobacco use Status Tobacco use date assessed 04/05/24 05/21/24 08:29 Patient Tobacco Use Status Never used Tobacco 05/21/24 08:29 e-Cigarette/Vaping Use Never Used 05/21/24 08:29 Thrive Assessment: Date of Thrive Assessment Date Thrive assessed 04/05/24 06/30/24 13:55 Currently or been in a relationship where the following occur: No concerns reported Telehealth Telehealth Telehealth Platform: Premise Location of provider rendering services: practice address Location of patient: address on file Patient Identification confirmed using: Name, : Yes Telehealth method: voice only Patient verbally consented to treatment: Yes Patient verbally consented to billing insurance company: Yes Patient informed of any privacy concerns related to visit: Yes Minutes spent on Phone/Video with Pt.: 8 Results Reviewed Results Reviewed: [address] [address] Magnetic Resonance Report Signed Patient: Mauri Heath MR#: [id number] : 1980 Acct:[id number] Age/Sex: 44 / M ADM Date: 05/30/24 Loc: HO.MRI Attending Dr: Ayesha VEGA Ordering Physician: Ayesha Diaz Date of Service: 05/30/24 Procedure(s): MR lumbar spine wo con Accession Number(s): [id number] cc: Ayesha Diaz~ EXAMINATION: MR LUMBAR SPINE WITHOUT CONTRAST CLINICAL INFORMATION: 44-year-old with low back pain, unspecified. Self-reported numbness and pain in the lumbar spine with leg numbness and toe numbness or weakness. COMPARISON: None available. TECHNIQUE: MRI of the lumbar spine was obtained using routine sequences without contrast. FINDINGS: Coronal Alignment: There is fyzs-kq-pfliorkd upper lumbar levoscoliosis, convex to the left at L1. Sagittal Alignment: Slight retrolisthesis at L4-L5 is noted with otherwise normal lumbosacral alignment. Lumbosacral Junction: Normal. There are 5 mta-bin-unhaqkj lumbar-type vertebral bodies. Vertebral Bodies: Vertebral body heights are well maintained. Disc Spaces and Endplates: Moderate degrees of disc volume loss are noted at the levels between L3-L4 and L5-S1 inclusive with ebst-mq-dejrrfgd disc volume loss at L1-L2 and moderate disc volume loss at T12-L1 with intradiscal degenerative signal changes at these levels most apparent at L5-S1. There is moderate anterior marginal spondylosis at L1-2 and T12-L1. Spinal Canal: No abnormal developmental findings. Bone Marrow: There are type I degenerative marrow signal changes seen along the endplates at L1-L2 and T12-L1 as well as at L5-S1 with type II marrow signal changes also noted at L5-S1. Otherwise, bone marrow signal intensity is within normal limits. Conus Medullaris: Terminates at L1. Morphology and signal is normal. Intradural Nerve Roots: Within normal limits. L5-S1: There is a shallow central disc protrusion with an annular fissure superimposed on minimal disc bulging without thecal sac or nerve root encroachment. There is minor right-sided facet joint arthropathy. No significant canal or neural foraminal stenosis. L4-L5: Trace retrolisthesis with concentric disc bulging and slight encroachment on the ventral thecal sac asymmetric to the right, abutting the origin of the right L5 nerve root sleeve. Minor facet joint arthropathy noted on the left. No significant canal stenosis. Minor foraminal narrowing noted on the right without neural impingement. L3-L4: Mild broad-based central to right central disc protrusion with minimal indentation of the ventral thecal sac. No significant facet joint arthrosis, canal or neural foraminal stenosis. L2-L3: Concentric disc bulging is noted asymmetric to the left with mild flattening of the ventral dural sac with evqp-jd-sugrlmyd facet joint hypertrophic degenerative changes, left more than right. Prominent dorsal fat pad with mild ligamentum flavum thickening noted without significant canal or neural foraminal stenosis. L1-L2: There is eccentric disc bulging asymmetric to the right with a right-sided foraminal/extraforaminal disc herniation and polo-ub-gsmbrzxh flattening of the ventral dural sac, asymmetric to the right. No significant facet joint arthrosis or central canal stenosis. There is mild right subarticular recess narrowing and mild right-sided foraminal narrowing. Right-sided extraforaminal disc protrusion probably contacts the extraforaminal right L1 nerve root. T12-L1: Small right paramedian disc protrusion and right paravertebral disc-osteophyte complex. No significant facet joint arthrosis, canal or neural foraminal stenosis. Paravertebral and Included Extraspinal Soft Tissues: The visualized paravertebral soft tissues and included retroperitoneal structures are unremarkable within the limitations of the exam. MR/MR lumbar spine wo con IMPRESSION: 1. Omkv-pa-mtdjipze upper lumbar levoscoliosis, convex to the left at L1 with slight retrolisthesis at L4-L5. 2. Multilevel DDD and spondylosis, with multilevel disc bulging and a right lateral disc herniation at L1-L2, with mild right-sided foraminal narrowing at this level and a small right paramedian disc protrusion at T12-L1. No significant spinal canal stenosis. 3. Multilevel bilateral facet joint arthropathy, as described above. Minor foraminal narrowing on the right at L4-L5 without neural impingement. Electronically signed by: Zeyad Ramesh MD 06/30/2024 02:14 PM EST Dictated By: ZEYAD RAMESH MD Signed By: <Electronically signed by ZEYAD RAMESH MD in OV> 06/30/24 1414 DD/ 1646 TD/TT: 05/30/24 1722 Credit Rating Inspector: Coding Level of Care Code Tele Est Pt Level 3 (69184) Complex EM visit Add On G2211 Diagnoses Bilateral leg paresthesia R20.2 Chronic midline low back pain without sciatica M54.50; G89.29 Back pain laterality: midline Sciatica presence: without sciatica Elevated liver enzymes R74.8 Vitamin D deficiency E55.9 Assessment & Plan Assessment & Plan (1) Bilateral leg paresthesia: Code(s): R20.2 - Paresthesia of skin Category: Medical (2) Chronic low back pain: Code(s): M54.50 - Low back pain, unspecified; G89.29 - Other chronic pain Category: Medical Qualifiers: Back pain laterality: midline Sciatica presence: without sciatica Qualified Code(s): M54.50 - Low back pain, unspecified; G89.29 - Other chronic pain (3) Elevated liver enzymes: Code(s): R74.8 - Abnormal levels of other serum enzymes Category: Medical (4) Vitamin D deficiency: Code(s): E55.9 - Vitamin D deficiency, unspecified Category: Medical Plan . Orders: Orders Comprehensive [place]. Panel Fast Today E55.9 - Vitamin D deficiency, unspecified, R74.8 - Abnormal levels of other serum enzymes Lipid Panel Today E55.9 - Vitamin D deficiency, unspecified, R74.8 - Abnormal levels of other serum enzymes Vitamin D 25-OH Total Today E55.9 - Vitamin D deficiency, unspecified, R74.8 - Abnormal levels of other serum enzymes Referrals Pain Management Referral G89.29 - Other chronic pain, M54.50 - Low back pain, unspecified, R20.2 - Paresthesia of skin
== END 2024-07-08 09:25 | disposition home or self-care (01) ==
LOC: HO.HMCFM 10:05
PROVIDERS: PCP Nurse Practitioner Family; Visit Provider Nurse Practitioner Family
DX: R20.2 Paresthesia of skin (principal); M54.50 Low back pain, unspecified; G89.29 Other chronic pain; R74.8 Abnormal levels of other serum enzymes; E55.9 Vitamin D deficiency, unspecified

== ENCOUNTER → 2024-07-07 10:05 | Outpatient (BNVA) | payer BC, SELFPAY | PROVIDERS: PCP Nurse Practitioner Family; Visit Provider Nurse Practitioner Family ==

== ENCOUNTER 2024-07-13 08:21 | Outpatient (AMB) | payer BC, SELFPAY ==
--- NOTE | 2024-07-13 08:34 | MHC.OFFVIS ---
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 Denies any recent trauma, injury or falls. Reports remote history of multiple sports related injuries, especially to his knees. Back pain is predominantly axial and occasionally radiate to both legs with frequent numbness and tingling in his toes, especially his big toes. His lumbar range of motion is intact. He reports significant neck pain and limited ROM with muscle stiffness. 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 Denies previous spine injections or surgery. To this point he has not tried any dedicated conservative treatment in the forms of physical therapy, chiropractic, acupuncture or injections. He is hesitant towards interventional treatments and would like to proceed with formal physical therapy. Pain is rated 3/10 today. Lumbar spine MRI results are noted below. Denies any fever or chills, abdominal or groin pain, weakness, footdrop, bladder or bowel dysfunction, or saddle anesthesia. He sees Urology for norturia and BPH symptoms. Oswestry Low Back Pain Disability Score=8 (mild disability) Location: Lower back with intermittent radiation into both legs and toes Duration: Chronic pain, worsening for past 2 years Characteristics of symptom or complaint: Aching, dull, numbness, tingling, radiating, sore, hurting Aggravating or associated factors: Laying flat, lifting, cold weather, prolonged sitting, walking Relieving factors: Ibuprofen, heat, rest, activity modifications Treatment: None PFSH Medical History Migraines Constipation Back injury ACL injury tear Arthritis Asthma Surgical History History of repair of ACL History of hernia surgery History of knee surgery Family History Mother Substance abuse Hypertension Cardiovascular disease Clotting disorder Lung cancer Alcoholism Father Substance abuse Hypertension High cholesterol Cardiovascular disease Alcoholism Maternal Grandfather Hypertension High cholesterol Cardiovascular disease Alcoholism Paternal Grandfather Hypertension High cholesterol Cardiovascular disease Alcoholism Mental health disorder Maternal Grandmother Cancer Paternal Grandmother Lung cancer Social History Household Members: Significant Other and Other Both parents involved: No Caregiver staying overnight: No Housing: House Are you a primary critical care nurse practitioner to a significant other at home: No Do you presently have visiting nurse or other home services: No 75 years or older and lives alone: No Alcohol intake: current Alcohol intake frequency: a few times a month Patient Tobacco Use Status: Never used Tobacco e-Cigarette/Vaping Use: Never Used service: No Current occupational status: employed 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 No acute distress. Alert and oriented. Mood and affect appropriate. Follows and participates in conversation appropriately. Respiratory effort is unlabored. No cough. Able to transition from sit to stand unassisted. Ambulates with bilaterally normal heel strike and toe off. Neck Neck: Yes normal visual inspection, Yes no lymphadenopathy, Yes supple, No anterior neck swelling, Yes no JVD and Yes prominent dorsocervical fat pad General: Yes no CVA tenderness Back/Spine/Pelvis Other: Patient is able to walk and stand on heels and tip toes with no difficulties demonstrating good motor tone. No limping. Can flex forward to 80-90 degrees and extend to 5-10 degrees without significant lumbar pain. Demonstrates 5/5 strength of quadriceps bilaterally as well as flexion/dorsiflexion of bilateral feet against resistance. 2+ pedal pulses bilaterally. Straight leg rise with dorsiflexion negative bilaterally. +3 patellar and +2 achilles reflexes bilaterally. Facet loading test positive bilaterally. Candido sign, Vic?s, Gaenslen, Pelvic compression and Stinchfield tests are negative bilaterally. No groin pain with I/E hip rotations. Valsalva maneuver is negative. Back: no CVA tenderness Cervical Spine: loss of normal cervical lordosis, cervical muscular tenderness, pain with cervical ROM, No Cervical spine scars present, No cervical spasm, No Cervical spine tenderness and No step off deformity Thoracic/Lumbar Spine: thoracic and lumbar spine normal to inspection, No Thoracic/lumbar spine scar(s), Lasegue's sign negative, straight leg raise negative bilaterally, pain with thoraco-lumbar ROM, paraspinal muscle tenderness, thoraco-lumbar ROM limited, No thoracic spinal tenderness and No lumbar spinal tenderness Sacroiliac joints: bilaterally nontender Extrem General: Yes capillary refill normal, Yes no clubbing, cyanosis or edema and Yes no calf tenderness Results Reviewed Results Reviewed: MR LUMBAR SPINE WITHOUT CONTRAST 05/30/24 CLINICAL INFORMATION: 44-year-old with low back pain, unspecified. Self-reported numbness and pain in the lumbar spine with leg numbness and toe numbness or weakness. COMPARISON: None available. TECHNIQUE: MRI of the lumbar spine was obtained using routine sequences without contrast. FINDINGS: Coronal Alignment: There is pzgz-dh-faestocn upper lumbar levoscoliosis, convex to the left at L1. Sagittal Alignment: Slight retrolisthesis at L4-L5 is noted with otherwise normal lumbosacral alignment. Lumbosacral Junction: Normal. There are 5 ubk-jkz-mkkobgp lumbar-type vertebral bodies. Vertebral Bodies: Vertebral body heights are well maintained. Disc Spaces and Endplates: Moderate degrees of disc volume loss are noted at the levels between L3-L4 and L5-S1 inclusive with jltr-ay-xvlpohkt disc volume loss at L1-L2 and moderate disc volume loss at T12-L1 with intradiscal degenerative signal changes at these levels most apparent at L5-S1. There is moderate anterior marginal spondylosis at L1-2 and T12-L1. Spinal Canal: No abnormal developmental findings. Bone Marrow: There are type I degenerative marrow signal changes seen along the endplates at L1-L2 and T12-L1 as well as at L5-S1 with type II marrow signal changes also noted at L5-S1. Otherwise, bone marrow signal intensity is within normal limits. Conus Medullaris: Terminates at L1. Morphology and signal is normal. Intradural Nerve Roots: Within normal limits. L5-S1: There is a shallow central disc protrusion with an annular fissure superimposed on minimal disc bulging without thecal sac or nerve root encroachment. There is minor right-sided facet joint arthropathy. No significant canal or neural foraminal stenosis. L4-L5: Trace retrolisthesis with concentric disc bulging and slight encroachment on the ventral thecal sac asymmetric to the right, abutting the origin of the right L5 nerve root sleeve. Minor facet joint arthropathy noted on the left. No significant canal stenosis. Minor foraminal narrowing noted on the right without neural impingement. L3-L4: Mild broad-based central to right central disc protrusion with minimal indentation of the ventral thecal sac. No significant facet joint arthrosis, canal or neural foraminal stenosis. L2-L3: Concentric disc bulging is noted asymmetric to the left with mild flattening of the ventral dural sac with rwuz-zh-biwbccjh facet joint hypertrophic degenerative changes, left more than right. Prominent dorsal fat pad with mild ligamentum flavum thickening noted without significant canal or neural foraminal stenosis. L1-L2: There is eccentric disc bulging asymmetric to the right with a right-sided foraminal/extraforaminal disc herniation and hacg-lz-wlkdyejg flattening of the ventral dural sac, asymmetric to the right. No significant facet joint arthrosis or central canal stenosis. There is mild right subarticular recess narrowing and mild right-sided foraminal narrowing. Right-sided extraforaminal disc protrusion probably contacts the extraforaminal right L1 nerve root. T12-L1: Small right paramedian disc protrusion and right paravertebral disc-osteophyte complex. No significant facet joint arthrosis, canal or neural foraminal stenosis. Paravertebral and Included Extraspinal Soft Tissues: The visualized paravertebral soft tissues and included retroperitoneal structures are unremarkable within the limitations of the exam. IMPRESSION: 1. Bvvk-ty-kkwevlkl upper lumbar levoscoliosis, convex to the left at L1 with slight retrolisthesis at L4-L5. 2. Multilevel DDD and spondylosis, with multilevel disc bulging and a right lateral disc herniation at L1-L2, with mild right-sided foraminal narrowing at this level and a small right paramedian disc protrusion at T12-L1. No significant spinal canal stenosis. 3. Multilevel bilateral facet joint arthropathy, as described above. Minor foraminal narrowing on the right at L4-L5 without neural impingement. Assessment & Plan Assessment & Plan (1) Chronic low back pain: Code(s): M54.50 - Low back pain, unspecified; G89.29 - Other chronic pain Category: Medical Qualifiers: Back pain laterality: midline Sciatica presence: without sciatica Qualified Code(s): M54.50 - Low back pain, unspecified; G89.29 - Other chronic pain (2) Lumbar degenerative disc disease: Code(s): M51.369 - Other intervertebral disc degeneration, lumbar region without mention of lumbar back pain or lower extremity pain Category: Medical (3) Cervical spondylosis: Code(s): M47.812 - Spondylosis without myelopathy or radiculopathy, cervical region Category: Medical (4) Muscle spasms of neck: Code(s): M62.838 - Other muscle spasm Category: Medical (5) Thoracic degenerative disc disease: Code(s): M51.34 - Other intervertebral disc degeneration, thoracic region Category: Medical Plan Discussed interventional treatments for back pain with intermittent radicular symptoms. Patient is hesitant towards injections or implants and would like to pursue formal PT and establish regular home exercise program. We will check his cervical and thoracic spine xrays to assess degree of degenerative changes, any subluxation, listhesis, compression fractures or pars defects. 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 Script provided for formal physical therapy to reduce pain and optimize mobility, improve strength, proprioception, and neuromuscular coordination. All questions and concerns have been answered and patient agreed with the treatment plan. Follow-up in 6-8 weeks? to see response to physical therapy, if no response to physical therapy will consider further interventional strategy if interested. Orders: Orders XR cervical spine 4V Today M47.812 - Spondylosis without myelopathy or radiculopathy, cervical region XR thoracic spine 2V Today M51.34 - Other intervertebral disc degeneration, thoracic region PT Evaluation and Treatment Today G89.29 - Other chronic pain, M47.812 - Spondylosis without myelopathy or radiculopathy, cervical region, M51.369 - Other intervertebral disc degeneration, lumbar region without mention of lumbar back pain or lower extremity pain, M54.50 - Low back pain, unspecified, M62.838 - Other muscle spasm Coding Level of Care Code New Pt Level 4 (18778) Diagnoses Chronic midline low back pain without sciatica M54.50; G89.29 Back pain laterality: midline Sciatica presence: without sciatica Lumbar degenerative disc disease M51.369 Cervical spondylosis M47.812 Muscle spasms of neck M62.838 Thoracic degenerative disc disease M51.34
[2024-07-13 08:39] VITALS: BP 137/84; PULSE 93; O2SAT 98; BMI 35.2
== END 2024-07-13 09:13 | disposition home or self-care (01) ==
PROVIDERS: PCP Nurse Practitioner Family; Referring Provider Nurse Practitioner Family; Visit Provider Nurse Practitioner Family
DX: M54.50 Low back pain, unspecified (principal); G89.29 Other chronic pain; M51.369 Other intervertebral disc degeneration, lumbar region without mention of lumbar back pain or lower extremity pain; M47.812 Spondylosis without myelopathy or radiculopathy, cervical region; M62.838 Other muscle spasm; M51.34 Other intervertebral disc degeneration, thoracic region
CPT/HCPCS: 99204

== ENCOUNTER 2024-08-27 13:13 | Outpatient (AMB) | payer BC, SELFPAY ==
--- NOTE | 2024-08-27 13:15 | MHC.OFFVIS ---
Vital Signs 08/27/24 13:16 Height 6 ft 4 in Weight 284 lb 13.396 oz BMI 34.7 BP 122/76 Blood Pressure Location Rt brachial Position Sitting Pulse 84 Pulse Source Pulse Oximeter Pulse Oximetry (%) 97 Oxygen Delivery Method Room Air Intake Visit Reasons: Colonoscopy Screening Intake Note: NEW PATIENT for initial colo screening. Chief Complaint; C/O GERD hx. Pt reports fairly well controlled with PPI currently. Pt has hx of EGD via [facility]? x2-3 years ago. Negative findings. No FMHx reported. 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 male with past medical history of thoracic degenerative disc disease, cervical spondylosis, BPH, GERD, ADHD, obesity is here today for pre colonoscopy screening.? Patient was sent to us by his PCP.? This is his first colonoscopy screening.? Patient denies any gastrointestinal symptoms in the past or at present.? Denies any personal or family history of gastrointestinal disease, colon polyps, or CRC.? Denies history of difficulty with sedation or anesthesia in the past.? Negative for history of sleep apnea.? Denies any history of cardiac, renal, pulmonary, or hepatic disease.? Patient reports acid reflux for some time, started on omeprazole, have to stop because he developed migraine headache. Patient does admit that he does not drink enough water.? No history of infectious? diseases like hepatitis A, B, C, HIV or tuberculosis.? Patient is not on any anticoagulation [facility] Medical History Migraines Constipation Back injury ACL injury tear Arthritis Asthma Surgical History (Updated 08/27/24 @ 13:29 by CHALINO Cortez) History of esophagogastroduodenoscopy (EGD) History of repair of ACL History of hernia surgery History of knee surgery Family History Mother Substance abuse Hypertension Cardiovascular disease Clotting disorder Lung cancer Alcoholism Father Substance abuse Hypertension High cholesterol Cardiovascular disease Alcoholism Maternal Grandfather Hypertension High cholesterol Cardiovascular disease Alcoholism Paternal Grandfather Hypertension High cholesterol Cardiovascular disease Alcoholism Mental health disorder Maternal Grandmother Cancer Paternal Grandmother Lung cancer Social History Household Members: Significant Other and Other Both parents involved: No Caregiver staying overnight: No Housing: House Are you a primary healthcare liaison to a significant other at home: No Do you presently have visiting nurse or other home services: No 75 years or older and lives alone: No Alcohol intake: current Alcohol intake frequency: a few times a month Patient Tobacco Use Status: Never used Tobacco e-Cigarette/Vaping Use: Never Used service: No Current occupational status: employed 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 Cognitive needs: No Hearing needs: No Vision needs: Yes (wear glasses) Review of Systems Const Denies weight gain and Denies weight loss ENT Reports no additional complaints, Denies dysphagia and Denies odynophagia Card Reports no additional complaints Resp Reports no additional complaints GI Denies abdominal pain, Denies belching, Denies melena, Denies bloating, Denies change in bowel habits, Denies dysphagia, Denies excessive flatus, Denies dyspepsia, Reports heartburn, Denies diarrhea, Denies loose stools, Denies nausea, Denies odynophagia and Denies vomiting Reports no additional complaints Musc Reports no additional complaints Neuro Reports no additional complaints Psych Reports no additional complaints Endo Reports no additional complaints Physical Exam Vital Signs: Last Vital Signs Pulse 84 08/27/24 13:16 BP 122/76 08/27/24 13:16 Pulse Ox 97 08/27/24 13:16 Oxygen Delivery Method Room Air 08/27/24 13:16 BMI result Body Mass Index 34.7 Const General: healthy appearing and no acute distress Nutritional Appearance: obese Orientation/consciousness: patient oriented x3 Resp Effort & Inspection: normal respiratory effort, able to speak in complete sentences, no tracheal deviation and symmetric chest movement Auscultation: clear to auscultation bilaterally Cardio Rate: regular rate GI Inspection: Yes normal to inspection, No distended and Yes obesity Palpation (GI): Soft to palpation, not firm, nontender and No hepatosplenomegaly present Auscultation: normal bowel sounds General: Yes no CVA tenderness Back/Spine/Pelvis Back: no CVA tenderness Skin General skin exam: elasticity normal, turgor normal and dry skin Neuro General: patient oriented x3 Psych Appearance: grossly normal Mental Status: mental status grossly normal Assessment & Plan Assessment & Plan (1) Screen for colon cancer: Code(s): Z12.11 - Encounter for screening for malignant neoplasm of colon Category: Medical (2) GERD (gastroesophageal reflux disease): Code(s): K21.9 - Gastro-esophageal reflux disease without esophagitis Category: Medical Qualifiers: Esophagitis bleeding: without hemorrhage Esophagitis presence: with esophagitis Qualified Code(s): K21.00 - Gastro-esophageal reflux disease with esophagitis, without bleeding Plan Patient denies any cardiac or respiratory symptoms.? Reports acid reflux, omeprazole helps, however patient developed severe headache and stopped. Patient was encouraged to drink fluids. He admits that he is not drinking fluids but drinks a lot of diet soda. We will change omeprazole to pantoprazole. Patient will be sent for upper endoscopy. Denies any issues with anesthesia in the past.? Denies any history of sleep apnea.? No history infectious diseases in the past or present.? Not on any anticoagulation therapy.? No family or personal history of colon cancer or polyps.? Patient denies melena, hematochezia, unintentional weight loss or ribbon like stools.? Discussed at length the pre-procedure,? prep, diet & medications as well as what to expect prior, during and after the procedure.?? Stressed the importance of good bowel prep.? Recommended the use of Vaseline or Calmoseptine OTC & baby wipes with bowel movements to promote comfort.? ?Patient verbalizes understanding and agrees to plan of care.? He was given the opportunity to ask questions and all questions answered.? We will see him after the procedure.? Medications: New bisacodyl (Dulcolax (bisacodyl)) take 4 tabs at noon the day before your colonoscopy 20 mg (4 x 5 mg) PO ONCE 1 day 4 tabs 0RF Z12.11 - Encounter for screening for malignant neoplasm of colon polyethylene glycol 3350 (Miralax) As directed by gastroenterology department at [facility] 238 grams PO ONCE 238 grams 0RF Z12.11 - Encounter for screening for malignant neoplasm of colon pantoprazole take one tablet half an hour before breakfast 40 mg PO DAILY 30 tabs 2RF K21.9 - Gastro-esophageal reflux disease without esophagitis Discontinued omeprazole Discontinued Reason: Doctor's Order 40 mg PO DAILY 90 caps 1RF Coding Level of Care Code New Pt Level 3 (95144) Diagnoses Screen for colon cancer Z12.11 Gastroesophageal reflux disease with esophagitis without hemorrhage K21.00 Esophagitis bleeding: without hemorrhage Esophagitis presence: with esophagitis Time Spent (min) 40 Comment 30 minutes spent with patient and additional 10 minutes spent reviewing his records
[2024-08-27 13:16] VITALS: BP 122/76; PULSE 84; O2SAT 97; BMI 34.7
== END 2024-08-27 13:52 | disposition home or self-care (01) ==
LOC: HO.HGI 13:13
PROVIDERS: PCP Nurse Practitioner Family; Visit Provider Nurse Practitioner Family
DX: Z01.818 Encounter for other preprocedural examination (principal); Z12.11 Encounter for screening for malignant neoplasm of colon; K21.00 Gastro-esophageal reflux disease with esophagitis, without bleeding
CPT/HCPCS: S0285

== ENCOUNTER 2024-09-24 10:55 | Outpatient (RCR) | payer BC, SELFPAY ==
--- NOTE | 2024-07-29 11:06 | MHC.PT.EP ---
[facility] [place] [facility] [place] [facility] [place] [facility] [address] Cathy Khoury [address] [phone] F: [phone] F: [phone] F: [phone] F: [phone] Physical Therapy Plan of Care Date of Evaluation: 07/29/24 Date of Surgery: Diagnosis: LBP other chronic pain other intervertebral disc degeneration, lumbar region Assessment: 44 y/o male referred to PT with LBP. S/s consistent with instability resulting in pain and difficulty with sustained prolonged positions, lifting, bending, and sometimes walking. Examination shows hypermobility throughout, decreased core/ hip strength, noted breath holding with harder tasks, poor pressure management with noted valsava and bulging at abdomen, and impaired gait pattern. Recommend PT 1x/week for 8 weeks to address impairments, implement HEP, and optimize functional mobility. Educated pt on pressure management, breathing thoughout movement (exhale with exertion), and TrA contraction. 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 Manual therapy to restore motion and function. Therapeutic exercise to improve strength and flexibility. Neuromuscular re-education for posture and balance. Therapeutic activities to return to functional activities of daily living. Electronically signed by: Iqra Johnson PT Please sign and return to therapist. Thank you for your referral.
--- NOTE | 2024-11-02 14:06 | MHC.PT.DC ---
[facility] [place] Office [place] Office [place] Office [address] Cathy Khoury 140 [facility] [phone] F: [phone] F: [phone] F: [phone] F: [phone] Physical Therapy Discharge Report Diagnosis: LBP other chronic pain other intervertebral disc degeneration, lumbar region Date of Surgery: Date of Evaluation: 07/29/24 Date of Discharge: 11/02/24 Treatments to Date: 7 Cancellations to Date: 0 No Shows to Date: 1 Discharge Status: Improved Function Independent with HEP Discharge Summary: Pt has made good progress with PT with less pain, improved body awareness, and improved strength. At this time, d/c to I HEP Electronically signed by: Iqra Johnson PT Please sign and return to therapist. Thank you for your referral.
== END 2024-11-02 14:06 | disposition home or self-care (01) ==
LOC: HO.PT 10:55
PROVIDERS: PCP Nurse Practitioner Family; Visit Provider Nurse Practitioner Family
DX: M54.50 Low back pain, unspecified (principal); G89.29 Other chronic pain; M51.369 Other intervertebral disc degeneration, lumbar region without mention of lumbar back pain or lower extremity pain
CPT/HCPCS: 97110; 97112; 97161

== ENCOUNTER 2024-09-30 12:55 | Outpatient (AMB) | payer BC, SELFPAY ==
--- NOTE | 2024-09-30 12:57 | A.OFFVIS_ITS ---
Intake Visit Reasons: 6 MONTH FOLLOW UP Intake Note: Patient is present for 6 month follow up Urology Medication:TAMSULOSIN Antibiotic Allergy:NONE Blood Thinner:NONE PVR: Decision Support Analyst Required: No Allergies No Known Allergies Allergy (Verified 09/30/24 13:01) PFS Medical History Migraines Constipation Back injury ACL injury tear Arthritis Asthma Surgical History History of esophagogastroduodenoscopy (EGD) History of repair of ACL History of hernia surgery History of knee surgery Family History Mother Substance abuse Hypertension Cardiovascular disease Clotting disorder Lung cancer Alcoholism Father Substance abuse Hypertension High cholesterol Cardiovascular disease Alcoholism Maternal Grandfather Hypertension High cholesterol Cardiovascular disease Alcoholism Paternal Grandfather Hypertension High cholesterol Cardiovascular disease Alcoholism Mental health disorder Maternal Grandmother Cancer Paternal Grandmother Lung cancer Social History Household Members: Significant Other and Other Both parents involved: No Caregiver staying overnight: No Housing: House Are you a primary healthcare prof to a significant other at home: No Do you presently have visiting nurse or other home services: No 75 years or older and lives alone: No Alcohol intake: current Alcohol intake frequency: a few times a month Patient Tobacco Use Status: Never used Tobacco e-Cigarette/Vaping Use: Never Used service: No Current occupational status: employed 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
--- NOTE | 2024-09-30 12:57 | A.OFFVIS_ITS ---
Intake Visit Reasons: 6 MONTH FOLLOW UP Intake Note: Patient is present for 6 month follow up Urology Medication:TAMSULOSIN Antibiotic Allergy:NONE Blood Thinner:NONE PVR:63ml Card Writer Hand Required: No Allergies No Known Allergies Allergy (Verified 09/30/24 13:01) Medication List - Last Reconciled 09/30/24 by Zahira Montesinos MD bisacodyl (Dulcolax (bisacodyl)) 20 mg (4 x 5 mg) PO ONCE 1 day cholecalciferol (vitamin D3) 50 mcg PO DAILY dextroamphetamine-amphetamine 15 mg 15 mg PO BID pantoprazole 40 mg PO DAILY polyethylene glycol 3350 (Miralax) 238 grams PO ONCE sumatriptan succinate (Imitrex) take 1 tab at onset of headache; if no relief may repeat 1 tab after at least 2 hrs; max = 4 tabs/24 hr PO tamsulosin 0.4 mg PO DAILY HPI Comments Details: 09/30/24--44-year-old male presenting for follow-up regarding his urinary symptoms. He has been intermittently utilizing tamsulosin, which, when adhered to, significantly enhances his urinary stream and the ability to completely void. Typically, he consumes the medication at night to minimize nocturnal awakenings. His fluid intake is substantial during daytime hours; however, this does not significantly impact his symptoms. Plan cont Tamsulosin, PSA screening. Results - Labs: PSA -05/21/24--0.44 ng/mL [id number]--Cexxhdd is a 44-year-old male who is here for evaluation for BPH symptoms. He complains of urinary frequency, hesitancy nocturia 2-3 times. AUA score 14. He denies dysuria or hematuria. I have discussed trial of tamsulosin. Discussed Avoid dietary bladder irritants, limit caffeine beverages. [facility] Medical History Migraines Constipation Back injury ACL injury tear Arthritis Asthma Surgical History History of esophagogastroduodenoscopy (EGD) History of repair of ACL History of hernia surgery History of knee surgery Family History Mother Substance abuse Hypertension Cardiovascular disease Clotting disorder Lung cancer Alcoholism Father Substance abuse Hypertension High cholesterol Cardiovascular disease Alcoholism Maternal Grandfather Hypertension High cholesterol Cardiovascular disease Alcoholism Paternal Grandfather Hypertension High cholesterol Cardiovascular disease Alcoholism Mental health disorder Maternal Grandmother Cancer Paternal Grandmother Lung cancer Social History Household Members: Significant Other and Other Both parents involved: No Caregiver staying overnight: No Housing: House Are you a primary healthcare project manager to a significant other at home: No Do you presently have visiting nurse or other home services: No 75 years or older and lives alone: No Alcohol intake: current Alcohol intake frequency: a few times a month Patient Tobacco Use Status: Never used Tobacco e-Cigarette/Vaping Use: Never Used service: No Current occupational status: employed Current occupation: [employer] Cognitive needs: No Hearing needs: No Vision needs: Yes (wear glasses) Review of Systems Const All systems reviewed & are unremarkable except as noted in HPI and below Reports no additional complaints Eyes Reports no additional complaints ENT Reports no additional complaints Card Reports no additional complaints Resp Reports no additional complaints GI Reports no additional complaints Reports as per HPI Musc Reports no additional complaints Skin/Breast Reports system reviewed and no additional complaints, except as documented Neuro Reports no additional complaints Psych Reports no additional complaints Endo Reports no additional complaints Dennys/Lymph Reports no additional complaints Aller/Immun Reports no additional complaints Assessment & Plan Assessment & Plan (1) BPH loc w urin obs/LUTS: Code(s): N40.1 - Benign prostatic hyperplasia with lower urinary tract symptoms Category: Medical (2) Nocturia: Code(s): R35.1 - Nocturia Category: Medical Plan Plan cont Tamsulosin, PSA screening. Medications: Refilled tamsulosin 0.4 mg PO DAILY 90 caps 3RF Patient Instructions: The patient had an opportunity to ask questions regarding treatment plan. The patient expressed understanding and agreement with the above treatment plan. The patient is aware they should contact our office by phone for worsening of their current condition or the appearance of new symptoms. Compliance is encouraged with any medications and followup testing that is ordered. It is a privilege to be allowed the opportunity to participate in the urologic care of your patient. If you have any questions or concerns regarding treatment for the above conditions please do not hesitate to contact me. The office telephone contact is [phone]. This note is constructed in part using voice recognition software. While every effort has been made to ensure accuracy nanoelectronics engineer errors may have been included. Yours sincerely, Zahira Montesinos MD Scribe Plan - Not visible on output: Patient was informed and verbally consented to the use of an ambient scribe for clinic note documentation during this visit. Coding Level of Care Code Est Pt Level 3 (46511) Complex EM visit Add On G2211 Diagnoses BPH loc w urin obs/LUTS N40.1 Nocturia R35.1
== END 2024-09-30 13:24 | disposition home or self-care (01) ==
LOC: HO.HUSH 12:56
PROVIDERS: Visit Provider Urology
DX: N40.1 Benign prostatic hyperplasia with lower urinary tract symptoms (principal); R35.1 Nocturia; Z13.9 Encounter for screening, unspecified
CPT/HCPCS: 99213

== ENCOUNTER → 2024-09-30 12:55 | Outpatient (BNVA) | payer BC, SELFPAY | PROVIDERS: Visit Provider Urology | DX: N40.1 Benign prostatic hyperplasia with lower urinary tract symptoms (principal); R35.0 Frequency of micturition; R35.1 Nocturia | CPT/HCPCS: 81003 ==

== ENCOUNTER 2024-11-02 10:26 | Outpatient (AMB) | payer BC, SELFPAY ==
--- NOTE | 2024-11-02 10:28 | A.OFFPC_ITS ---
Vital Signs 11/02/24 10:32 Height 6 ft 4 in Weight 281 lb 4 oz BMI 34.2 BP 118/72 Blood Pressure Location Rt brachial Position Sitting Respiration 12 Pulse 95 Pulse Source Pulse Oximeter Temp 97.4 F Temp Source Oral Pulse Oximetry (%) 98 Oxygen Delivery Method Room Air Intake Visit Reasons: back pain, Vit d def. Intake Note: Patient c/o back px Clothes Separator Required: No Allergies No Known Allergies Allergy (Verified 11/02/24 11:02) Medication List - Last Reconciled 11/02/24 by Ayesha Diaz, CHIP FRIER- bisacodyl (Dulcolax (bisacodyl)) 20 mg (4 x 5 mg) PO ONCE 1 day cholecalciferol (vitamin D3) 50 mcg PO DAILY dextroamphetamine-amphetamine 15 mg 15 mg PO BID pantoprazole 40 mg PO DAILY polyethylene glycol 3350 (Miralax) 238 grams PO ONCE sumatriptan succinate (Imitrex) take 1 tab at onset of headache; if no relief may repeat 1 tab after at least 2 hrs; max = 4 tabs/24 hr PO tamsulosin 0.4 mg PO DAILY Tobacco use date assessed: 07/07/24 Dental Screening Dental Screen Date: 11/02/24 Did you have a dental visit in the last 12 months?: Yes Did you have a dental problem in the last 6 months where you did not have access to dental care?: No Was dental information given to patient?: Patient has dentist HPI HPI Comments History of Present Illness Details 44 y/o M with nocturia, chronic low back pain, obesity, anemia, ADHD, GERD , mild intermittent asthma, osteoarthritis of hands and knees, migraine headaches, elevated LFTS s/p hernia repair with mesh 2012, corrective surgery to left knee, ACL repair left knee History of Present Illness - The patient is a 44-year-old male pres enting with follow-up for back pain and vitamin D deficiency. - Back Pain: Patient has a history of ba ck pain managed by pain management clinic, recommended physical therapy, and advised cervical thoracic spine x- rays. Patient reports significant improvement post-therapy; denies major issues, hasn't undergone x-rays. Symptoms are managed without complication. - Vitamin D Deficiency: Taking prescribe d vitamin D3 50 mcg for deficiency. Patient initially non-compliant, now compliant with medication dosage for a few weeks. Ongoing monitoring recommended. Due for repeat labs, wishes to come back at a later date. - Migraine Headaches: Intermittent migra jo triggered by potential dehydration and fasting. Uses Imitrex effectively as needed with good response. - Prostate Issues: Urologist consultatio n for prostate; stable and non- progressive, monitoring recommended every six months. - elevated LFTs, no abd complaints. due foe repeat labs Physical Exam General: Well developed, well nourished, in no acute distress. Appears stated age. Head: Normocephalic, atraumatic. Eyes: Pupils are equal, round and reactive to light and accommodation. Conjunctivae are clear. Lungs: Clear to auscultation bilaterally. No rales, rhonchi or wheeze noted. Good air flow in all schroeder. Heart: Regular rate and rhythm. No murmurs, click, rubs or gallops are noted. Abdomen: Bowel sounds present in all quadrants. The abdomen is soft, nontender, with no masses or organomegaly noted. No hernias are noted. Musculoskeletal: Joints are nontender, without swelling, redness, or effusions. Pulses: Peripheral pulses are equal and palpable bilaterally. Extremities: No clubbing, cyanosis nor edema is noted. Neuro: NEELY x 4 normal strength and tone Psych: Mood and affect appropriate. Reviewed: 06/2024 MRI results avail 06/2024 [facility] [place] Pain Mgmt - PT Xrays 09/2024 Uro cont q6 mo visits and monitor ing Discussion Notes I discussed the current status of the patient's back pain, noting improvement with physical therapy and no acute issues necessitating the immediate need for x-rays, but they remain an option should his symptoms recur or worsen. The importance of adherence to vitamin D supplementation was emphasized due to previous non-compliance and plans to repeat laboratory testing to gauge current levels. We spoke about migraines, addressing his current management with Imitrex, and reiterated hydration as a potential modifiable factor. Given that his prostate issues were deemed as stable by the urologist, I recommended a six- month follow-up for monitoring. Additionally, the patient was guided to follow- up for a colonoscopy that was previously recommended, ensuring the scheduling is on track. Assessment and Plan 1. Back Pain The patient reports significant improvement in back pain with physical therapy. The cervical thoracic spine x-rays recommended are not immediately needed but may be revisited if symptoms recur. 2. Vitamin D Deficiency Advised compliance with vitamin D 350 mcg supplementation, and repeat labs are planned to assess current status. Non-fasting labs are sufficient to prevent migraine onset. 3. Migraine Headaches Effective management of migraines with Imitrex was confirmed. Emphasized maintaining hydration to mitigate frequency; refill prescription recommended. 4. Prostate Issues Prostate concerns remain stable as noted by urologist, follow-up appointment in six months recommended for further monitoring. Patient Instructions - Continue physical therapy as previousl y recommended. - Take the prescribed vitamin D3 50 mcg as directed daily. - Maintain hydration to prevent migraine triggers. - Schedule and attend repeat lab work so on; no need to fast. - Follow-up with urologist in six months for prostate monitoring. - Contact if back pain worsens or if exp eriencing any new symptoms. RTO 6 months for CPE, sooner PRN Consent Patient was informed and verbally consented to the use of an ambient scribe for clinic note documentation during this visit. Total time spent caring for the patient today was 30 minutes. This includes time spent before the visit reviewing the chart, time spent during the visit, and time spent after the visit on documentation, reviewing laboratory results, diagnostic imaging, medications, performing a medically necessary evaluation, counseling on diagnoses, care coordination, ordering appropriate tests, ordering appropriate medications, review of tests performed by other providers, reporting test results with the patient, communication with other healthcare providers. [facility] Medical History Migraines Constipation Back injury ACL injury tear Arthritis Asthma Surgical History History of esophagogastroduodenoscopy (EGD) History of repair of ACL History of hernia surgery History of knee surgery Family History Mother Substance abuse Hypertension Cardiovascular disease Clotting disorder Lung cancer Alcoholism Father Substance abuse Hypertension High cholesterol Cardiovascular disease Alcoholism Maternal Grandfather Hypertension High cholesterol Cardiovascular disease Alcoholism Paternal Grandfather Hypertension High cholesterol Cardiovascular disease Alcoholism Mental health disorder Maternal Grandmother Cancer Paternal Grandmother Lung cancer Social History Household Members: Significant Other and Other Both parents involved: No Caregiver staying overnight: No Housing: House Are you a primary director career to a significant other at home: No Do you presently have visiting nurse or other home services: No 75 years or older and lives alone: No Alcohol intake: current Alcohol intake frequency: a few times a month Patient Tobacco Use Status: Never used Tobacco e-Cigarette/Vaping Use: Never Used service: No Current occupational status: employed 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 1. Little interest or pleasure in doing things: not at all 2. Feeling down, depressed, or hopeless: not at all 3. Trouble falling or staying asleep, or sleeping too much: not at all 4. Feeling tired or having little energy: not at all 5. Poor appetite or overeating: not at all 6. Feeling bad about yourself - or that you are a failure or have let yourself or your family down: not at all 7. Trouble concentrating on things, such as reading the newspaper or watching television: not at all 8. Moving or speaking so slowly that other people could have noticed. Or the opposite - being so fidgety or restless that you have been moving around a lot more than usual: not at all 9. Thoughts that you would be better off or of hurting yourself in some way: not at all Total score: 0 Depression Screening Interpretation: Negative Depression Screening Done: Yes 63847 - PHQ-9 Billing: Yes Source: Developed by Drs. Fred De La Garza, Jenny Craig, Neal Collier and colleagues, with an educational klaus from [employer]. Thrive Questionnaire Date Thrive assessed: 11/02/24 I am a: Patient What is your living situation today?: I have a steady place to live Within the past 12 months, did the food you bought not last and you didn't have the money to get more?: Never true Within the past 12 months, did you worry whether your food would run out before you got money to buy more?: Never true Do you have trouble paying for medicines?: No Do you have trouble getting transportation to medical appointments?: No Do you have trouble paying your heating and electricity bill?: No Do you have trouble taking care of your child, family member or friend?: No Do you have trouble with day-to-day activities such as bathing, preparing meals, shopping, managing finances, etc.?: No Are you currently unemployed and looking for a job?: No Are you interested in more education?: No THRIVE Score: 0 RONALDO-7 AMB Questionnaire RONALDO-7 Date RONALDO - 7 assessed: 11/02/24 Feeling nervous, anxious, or on edge: 0 = Not at all Not being able to stop or control worryin = Not at all Worrying too much about different things: 0 = Not at all Trouble relaxin = Not at all Being so restless that it is hard to sit still: 0 = Not at all Becoming easily annoyed or irritable: 0 = Not at all Feeling afraid as if something awful might happen: 0 = Not at all Total RONALDO-7 score (0-4 normal; 5-9 mild; 10-14 moderate; 15-21 severe): 0 Source: Developed by Drs. Fred De La Garza, Jenny Craig, Neal Collier and colleagues, with an educational klaus from [employer]. RONALDO-7 Assessment Billing RONALDO-7 Assessment Tool: RONALDO-7 Assessment 13659 Physical exam (Primary Care) Vital Signs: Last Vital Signs Temp 97.4 F 11/02/24 10:32 Pulse 95 11/02/24 10:32 Resp 12 11/02/24 10:32 BP 118/72 11/02/24 10:32 Pulse Ox 98 11/02/24 10:32 Oxygen Delivery Method Room Air 11/02/24 10:32 BMI result Body Mass Index 34.2 BMI Assessment/Plan discussion: High BMI High, discussed plan: lifestyle Tobacco/Smoking Status: Tobacco use Status Tobacco use date assessed 07/07/24 11/02/24 10:28 Patient Tobacco Use Status Never used Tobacco 11/02/24 10:28 e-Cigarette/Vaping Use Never Used 11/02/24 10:28 PHQ-9: PHQ-9 Score PHQ-9: Total score 0 11/02/24 10:58 Depression Screening Interpretation: Negative Thrive Assessment: Date of Thrive Assessment Date Thrive assessed 11/02/24 11/02/24 10:28 Coding Level of Care Code Est Pt Level 4 (93282) Complex EM visit Add On G2211 Diagnoses Elevated liver enzymes R74.8 Vitamin D deficiency E55.9 BPH loc w urin obs/LUTS N40.1 Chronic midline low back pain without sciatica M54.50; G89.29 Back pain laterality: midline Sciatica presence: without sciatica Lumbar degenerative disc disease M51.369 Migraine without aura and without status migrainosus, not intractable G43.009 Status migrainosus presence: without status migrainosus Intractability: not intractable Obesity, Class I, BMI 30.0-34.9 (see actual BMI) E66.811 Additional Codes RONALDO-7 Assessment Billing - RONALDO-7 Assessment Tool: RONALDO-7 Assessment 28717 ([id number]) PHQ-9 - 22856 - PHQ-9 Billing: Yes ([id number]) Assessment & Plan Assessment & Plan (1) Elevated liver enzymes: Code(s): R74.8 - Abnormal levels of other serum enzymes Category: Medical (2) Vitamin D deficiency: Code(s): E55.9 - Vitamin D deficiency, unspecified Category: Medical (3) BPH loc w urin obs/LUTS: Code(s): N40.1 - Benign prostatic hyperplasia with lower urinary tract symptoms Category: Medical (4) Chronic low back pain: Code(s): M54.50 - Low back pain, unspecified; G89.29 - Other chronic pain Category: Medical Qualifiers: Back pain laterality: midline Sciatica presence: without sciatica Qualified Code(s): M54.50 - Low back pain, unspecified; G89.29 - Other chronic pain (5) Lumbar degenerative disc disease: Code(s): M51.369 - Other intervertebral disc degeneration, lumbar region without mention of lumbar back pain or lower extremity pain Category: Medical (6) Migraine without aura: Code(s): G43.009 - Migraine without aura, not intractable, without status migrainosus Category: Medical Qualifiers: Status migrainosus presence: without status migrainosus Intractability: not intractable Qualified Code(s): G43.009 - Migraine without aura, not intractable, without status migrainosus (7) Obesity, Class I, BMI 30.0-34.9 (see actual BMI): Code(s): E66.811 - Obesity, class 1 Category: Medical Plan . Orders: Orders Vitamin D 25-OH Total Today E55.9 - Vitamin D deficiency, unspecified, R74.8 - Abnormal levels of other serum enzymes Lipid Panel Today E55.9 - Vitamin D deficiency, unspecified, R74.8 - Abnormal levels of other serum enzymes Comprehensive Met. Panel Today E55.9 - Vitamin D deficiency, unspecified, R74.8 - Abnormal levels of other serum enzymes Medications: Refilled sumatriptan succinate (Imitrex) take 1 tab at onset of headache; if no relief may repeat 1 tab after at least 2 hrs; max = 4 tabs/24 hr PO 10 tabs 2RF
[2024-11-02 10:32] VITALS: BP 118/72; PULSE 95; RESP 12; TEMP 36.3; O2SAT 98; BMI 34.2
== END 2024-11-02 11:12 | disposition home or self-care (01) ==
LOC: HO.HMCFM 10:27
PROVIDERS: PCP Nurse Practitioner Family; Visit Provider Nurse Practitioner Family
DX: R74.8 Abnormal levels of other serum enzymes (principal); E55.9 Vitamin D deficiency, unspecified; E66.811 Obesity, class 1; Z68.34 Body mass index [BMI] 34.0-34.9, adult; N40.1 Benign prostatic hyperplasia with lower urinary tract symptoms; M54.50 Low back pain, unspecified; G89.29 Other chronic pain; M51.369 Other intervertebral disc degeneration, lumbar region without mention of lumbar back pain or lower extremity pain; G43.009 Migraine without aura, not intractable, without status migrainosus

== ENCOUNTER → 2024-11-02 10:26 | Outpatient (BNVA) | payer BC, SELFPAY | PROVIDERS: PCP Nurse Practitioner Family; Visit Provider Nurse Practitioner Family | DX: R35.1 Nocturia (principal); E66.811 Obesity, class 1; G89.29 Other chronic pain; F90.9 Attention-deficit hyperactivity disorder, unspecified type; K21.9 Gastro-esophageal reflux disease without esophagitis; J45.20 Mild intermittent asthma, uncomplicated; M17.0 Bilateral primary osteoarthritis of knee; M19.042 Primary osteoarthritis, left hand; M19.041 Primary osteoarthritis, right hand; G43.909 Migraine, unspecified, not intractable, without status migrainosus; E55.9 Vitamin D deficiency, unspecified; R74.8 Abnormal levels of other serum enzymes; N40.1 Benign prostatic hyperplasia with lower urinary tract symptoms; M51.360 Other intervertebral disc degeneration, lumbar region with discogenic back pain only; G43.009 Migraine without aura, not intractable, without status migrainosus; Z68.34 Body mass index [BMI] 34.0-34.9, adult | CPT/HCPCS: 96127 ==

== ENCOUNTER 2025-01-04 13:20 | Outpatient (REF) | payer BC, SELFPAY ==
[2025-01-04 14:59] LABS: Alanine Aminotransferase 49 U/L (0-40); Albumin Level 4.8 g/dL (3.5-5.0); Alkaline Phosphatase 63 U/L (39-117); Anion Gap 12 (12-20); Aspartate Amino Transferase 46 U/L (5-37); Blood Urea Nitrogen 13 mg/dL (9-16); Calcium 9.7 mg/dL (8.4-10.2); Carbon Dioxide 25 mmol/L (22-29); Chloride 107 mmol/L (96-108); Cholesterol 184 mg/dL (<200); Estimated Glomerular Filt Rate > 60; HDL Cholesterol 35 mg/dL (>40); Potassium 3.9 mmol/L (3.3-5.1); Sodium 140 mmol/L (135-145); Total Protein 7.9 g/dL (6.5-8.0); Triglycerides 118 mg/dL (<150)
== END 2025-01-04 13:21 | disposition home or self-care (01) ==
LOC: HO.LAB 13:20
PROVIDERS: PCP Nurse Practitioner Family; Visit Provider Nurse Practitioner Family
DX: R74.8 Abnormal levels of other serum enzymes (principal); E55.9 Vitamin D deficiency, unspecified
CPT/HCPCS: 36415; 80053; 80061; 82306

== ENCOUNTER 2025-01-10 14:40 | Outpatient (AMB) | payer BC, SELFPAY ==
--- NOTE | 2025-01-10 14:43 | A.OFFPC_ITS ---
Intake Visit Reasons: Blood Lab Results Allergies No Known Allergies Allergy (Verified 01/10/25 14:45) Medication List - Last Reconciled 01/10/25 by Ayesha Diaz [facility]- bisacodyl (Dulcolax (bisacodyl)) 20 mg (4 x 5 mg) PO ONCE 1 day cholecalciferol (vitamin D3) 50 mcg PO DAILY dextroamphetamine-amphetamine 15 mg 15 mg PO BID pantoprazole 40 mg PO QAM polyethylene glycol 3350 (Miralax) 238 grams PO ONCE sumatriptan succinate (Imitrex) take 1 tab at onset of headache; if no relief may repeat 1 tab after at least 2 hrs; max = 4 tabs/24 hr PO tamsulosin 0.4 mg PO DAILY Tobacco use date assessed: 07/07/24 Dental Screening Dental Screen Date: 11/02/24 HPI HPI Comments History of Present Illness Details 44 y/o M with nocturia, chronic low back pain, obesity, anemia, ADHD, GERD , mild intermittent asthma, osteoarthritis of hands and knees, migraine headaches, elevated LFTS s/p hernia repair with mesh 2012, corrective surgery to left knee, ACL repair left knee History of Present Illness - The patient is a 44-year-old male pres enting to review labs results - Six-week history of fatigue, difficult y waking, daytime naps, medication- independent. - Elevated liver enzymes and cholesterol See below . - Questions regarding dietary impact and nutrition as a treatment. - Lifestyle factors may exacerbate fatig ue; labs are not suspected as the sole cause. - Possible sleep study consideration; no formal initiation. - Pending scheduling of colonoscopy [facility] e August. Vitamin D is normal, please continue to take supplement. Liver enzymes remain mildly elevated/stable. Cholesterol is also elevated/stable. Lifestyle modifications and monitoring are recommended. Other labs are normal. As far as nutrition. Would a field aide be a good person to get like 3-6 meals nutritionally balanced meals I can eat ad infinitum? If so is that a [place] [facility] [place] Or would I look outside? I did actually want to bring up I have been experiencing some extreme tiredness. I generally have stable sleep patterns but the last roughly 6 weeks I have had a hard time waking up. I take more than just naps in the middle of the day. This happens with and without my ADHD medication, but to a lesser degree. Put another way I seem to be more tired across the board, less energy to do stuff, more tired after. I've also had a reduced appetite. Review of Systems - General: Reports fatigue, difficulty w aking, and daytime naps. - Digestive: Reports elevated liver enzy mes. - Cardiovascular: Reports hypercholester olemia. Results - Labs: See below Assessment and Plan 1. Elevated Liver Enzymes - Emphasize stable state. - Referral to field aide. 2. Hypercholesterolemia - Diet modification discussed. - Referral to [employer] 3. Fatigue - Consider sleep study; hold off at this time; he feels it is more lifestyle at this time - Lifestyle adjustments suggested and melgar pported 4. Pending Colonoscopy - I sent a 2nd message to [facility] [place] to help schedule his colonoscopy. RTO as scheduled, sooner PRN Telehealth Attestation The consultation was conducted via telehealth, and I attest the documentation accurately reflects the content of the telehealth session. The patient has been explained that this is an interactive (audio/video) telehealth encounter and what that consists of. The patient understands and wishes to proceed. [employer] platform was used. Total time spent caring for the patient today was 21 minutes. This includes time spent before the visit reviewing the chart, time spent during the visit, and time spent after the visit on documentation, reviewing laboratory results, diagnostic imaging, medications, performing a medically necessary evaluation, counseling on diagnoses, care coordination, ordering appropriate tests, ordering appropriate medications, review of tests performed by other providers, reporting test results with the patient, communication with other healthcare providers. [facility] Medical History Migraines Constipation Back injury ACL injury tear Arthritis Asthma Surgical History History of esophagogastroduodenoscopy (EGD) History of repair of ACL History of hernia surgery History of knee surgery Family History Mother Substance abuse Hypertension Cardiovascular disease Clotting disorder Lung cancer Alcoholism Father Substance abuse Hypertension High cholesterol Cardiovascular disease Alcoholism Maternal Grandfather Hypertension High cholesterol Cardiovascular disease Alcoholism Paternal Grandfather Hypertension High cholesterol Cardiovascular disease Alcoholism Mental health disorder Maternal Grandmother Cancer Paternal Grandmother Lung cancer Social History Household Members: Significant Other and Other Both parents involved: No Caregiver staying overnight: No Housing: House Are you a primary career coach to a significant other at home: No Do you presently have visiting nurse or other home services: No 75 years or older and lives alone: No Alcohol intake: current Alcohol intake frequency: a few times a month Patient Tobacco Use Status: Never used Tobacco e-Cigarette/Vaping Use: Never Used service: No Current occupational status: employed Current occupation: [employer] Cognitive needs: No Hearing needs: No Vision needs: Yes (wear glasses) Questionnaire Thrive Questionnaire Date Thrive assessed: 11/02/24 RONALDO-7 AMB Questionnaire RONALDO-7 Date RONALDO - 7 assessed: 11/02/24 Source: Developed by Drs. Fred De La Garza, Jenny Craig, Neal Collier and colleagues, with an educational klaus from [employer]. Physical exam (Primary Care) Tobacco/Smoking Status: Tobacco use Status Tobacco use date assessed 07/07/24 11/02/24 10:28 Patient Tobacco Use Status Never used Tobacco 11/02/24 10:28 e-Cigarette/Vaping Use Never Used 11/02/24 10:28 Thrive Assessment: Date of Thrive Assessment Date Thrive assessed 11/02/24 11/02/24 10:28 Telehealth Telehealth Telehealth Platform: [facility] [place] Location of provider rendering services: practice address Location of patient: address on file Patient Identification confirmed using: Name, : Yes Telehealth method: voice only Patient verbally consented to treatment: Yes Patient verbally consented to billing insurance company: Yes Patient informed of any privacy concerns related to visit: Yes Minutes spent on Phone/Video with Pt.: 9 Results Reviewed Results Reviewed: 01/04/25 Laboratory Result Units Range Interpretation Provider Comments Sodium Level 140 mmol/L (135-145) Potassium Level 3.9 mmol/L (3.3-5.1) Chloride Level 107 mmol/L (96-108) Carbon Dioxide Level 25 mmol/L (22-29) Anion Gap 12 (12-20) Blood Urea Nitrogen 13 mg/dL (9-16) Creatinine 0.90 mg/dL (0.5-1.4) Estimated Creatinine Clearance Calc Not Reportable Estimat Glomerular Filtration Rate > 60 Random Glucose 96 mg/dL (60-115) Calcium Level 9.7 mg/dL (8.4-10.2) Total Bilirubin 0.6 mg/dL (0.0-1.0) Aspartate Amino Transf (AST/SGOT) 46 U/L (5-37) High Alanine Aminotransferase (ALT/SGPT) 49 U/L (0-40) High Alkaline Phosphatase 63 U/L (39-117) Total Protein 7.9 g/dL (6.5-8.0) Albumin 4.8 g/dL (3.5-5.0) Triglycerides Level 118 mg/dL (<150) Cholesterol Level 184 mg/dL (<200) LDL Cholesterol, Calculated 126 mg/dL (<100) High HDL Cholesterol 35 mg/dL (>40) Low 25-Hydroxy Vitamin D Total 33.3 ng/mL (>30) Coding Level of Care Code Tele Est Pt Level 3 (57617) Complex EM visit Add On G2211 Diagnoses BMI 34.0-34.9,adult Z68.34 Elevated liver enzymes R74.8 Vitamin D deficiency E55.9 Borderline high cholesterol E78.9 Assessment & Plan Assessment & Plan (1) BMI 34.0-34.9,adult: Code(s): Z68.34 - Body mass index [BMI] 34.0-34.9, adult Category: Medical (2) Elevated liver enzymes: Code(s): R74.8 - Abnormal levels of other serum enzymes Category: Medical (3) Vitamin D deficiency: Code(s): E55.9 - Vitamin D deficiency, unspecified Category: Medical (4) Borderline high cholesterol: Code(s): E78.9 - Disorder of lipoprotein metabolism, unspecified Category: Medical Plan . Orders: Referrals Clinical Liaison Nutrition Referral E55.9 - Vitamin D deficiency, unspecified, E78.9 - Disorder of lipoprotein metabolism, unspecified, R74.8 - Abnormal levels of other serum enzymes, Z68.34 - Body mass index [BMI] 34.0-34.9, adult
== END 2025-01-10 16:22 | disposition home or self-care (01) ==
LOC: HO.HMCFM 14:40
PROVIDERS: PCP Nurse Practitioner Family; Visit Provider Nurse Practitioner Family
DX: R74.8 Abnormal levels of other serum enzymes (principal); Z68.34 Body mass index [BMI] 34.0-34.9, adult; E55.9 Vitamin D deficiency, unspecified; E78.9 Disorder of lipoprotein metabolism, unspecified

== ENCOUNTER → 2025-01-10 14:40 | Outpatient (BNVA) | payer BC, SELFPAY | PROVIDERS: PCP Nurse Practitioner Family; Visit Provider Nurse Practitioner Family | DX: R30.0 Dysuria (principal); M54.50 Low back pain, unspecified; G89.29 Other chronic pain; D64.9 Anemia, unspecified; F90.9 Attention-deficit hyperactivity disorder, unspecified type; K21.9 Gastro-esophageal reflux disease without esophagitis; J45.20 Mild intermittent asthma, uncomplicated; G43.909 Migraine, unspecified, not intractable, without status migrainosus; M19.042 Primary osteoarthritis, left hand; M19.041 Primary osteoarthritis, right hand; M17.0 Bilateral primary osteoarthritis of knee; E78.00 Pure hypercholesterolemia, unspecified; R53.83 Other fatigue; R74.8 Abnormal levels of other serum enzymes; E55.9 Vitamin D deficiency, unspecified; E78.9 Disorder of lipoprotein metabolism, unspecified | CPT/HCPCS: 98968 ==

== ENCOUNTER 2025-02-28 12:17 | Outpatient (AMB) | payer BC, SELFPAY ==
--- NOTE | 2025-02-28 12:32 | MHC.AMNUTRGE ---
VS Expanded 02/28/25 12:34 03/01/25 21:06 Height 6 ft 4 in 6 ft 4 in Weight 274 lb 7.608 oz 275 lb BMI 33.4 33.5 Intake Visit Reasons: Vitamin D deficiency Allergies No Known Allergies Allergy (Verified 01/10/25 14:45) Nutrition Presentation Details: Pt presents for MNT for obesity with Vit D def, elevated liver enzymes, borderline high chol Pt reports interest in knowing recommended macros he reports consuming a variety of foods, different ethnic foods and enjoys making own meals BS Monitoring Most Recent Diabetes Results: Cholesterol, (<200) 184 mg/dL 01/04/25 HDL Cholesterol, (>40) 35 mg/dL L 01/04/25 Triglycerides, (<150) 118 mg/dL 01/04/25 Creatinine, (0.5-1.4) 0.90 mg/dL 01/04/25 BUN, (9-16) 13 mg/dL 01/04/25 Sodium, (135-145) 140 mmol/L 01/04/25 Potassium, (3.3-5.1) 3.9 mmol/L 01/04/25 Chloride, (96-108) 107 mmol/L 01/04/25 Carbon Dioxide, (22-29) 25 mmol/L 01/04/25 Calcium, (8.4-10.2) 9.7 mg/dL 01/04/25 AST, (5-37) 46 U/L H 01/04/25 ALT, (0-40) 49 U/L H 01/04/25 Total Protein, (6.5-8.0) 7.9 g/dL 01/04/25 Albumin, (3.5-5.0) 4.8 g/dL 01/04/25 JZN-Ujscswc-Gd.Jeor Equation Height: 6 ft 4 in Weight: 275 lb Resting Metabolic Rate: 2236.23 Calculated Activity Level: Sedentary Calories Needed to Maintain Weight: 2683.48 Diagnosis Nutrition problem #1: altered nutrition labs As related to (etiology) #1: diagnosis As evidenced by (sign/symptom) #1: abnormal lab values [facility] Medical History Migraines Constipation Back injury ACL injury tear Arthritis Asthma Surgical History History of esophagogastroduodenoscopy (EGD) History of repair of ACL History of hernia surgery History of knee surgery Family History Mother Substance abuse Hypertension Cardiovascular disease Clotting disorder Lung cancer Alcoholism Father Substance abuse Hypertension High cholesterol Cardiovascular disease Alcoholism Maternal Grandfather Hypertension High cholesterol Cardiovascular disease Alcoholism Paternal Grandfather Hypertension High cholesterol Cardiovascular disease Alcoholism Mental health disorder Maternal Grandmother Cancer Paternal Grandmother Lung cancer Social History Household Members: Significant Other and Other Both parents involved: No Caregiver staying overnight: No Housing: House Are you a primary skin care instructor to a significant other at home: No Do you presently have visiting nurse or other home services: No 75 years or older and lives alone: No Alcohol intake: current Alcohol intake frequency: a few times a month Patient Tobacco Use Status: Never used Tobacco e-Cigarette/Vaping Use: Never Used service: No Current occupational status: employed 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 Cognitive needs: No Hearing needs: No Vision needs: Yes (wear glasses) Assessment & Plan Assessment & Plan (1) BMI 34.0-34.9,adult: Comment: Pt with vit D def, borderline high chol, elevated liver enzymes Code(s): Z68.34 - Body mass index [BMI] 34.0-34.9, adult Category: Medical Plan: current wt: 125 kg ( 03/10 ) est kcal needs as per MSJ: 2700 est protein needs as per 1 g/kg BW: 130 est fluid needs as per 30 ml/kg BW: 3700 Recommended fiber > 12 g /day and gradually increase up to 25-28 g /day or as tolerated Sodium recommendations: less than 2300 mg/d unless otherwise specified by MD Nutrition topics discussed : Reviewed (R), Pt verbalized understanding (V) , not applicable (N/A) R, : Healthy Plate Method Concept: R, : Carbohydrates: food sources of carbohydrates, relationship of carbohydrates to blood glucose, fatty liver GI health. Recommended total amount of carbohydrates per meals and snack. Differences between simple carbohydrates and complex carbohydrates R, : Lean protein foods including vegan , vegetarian sources of protein. Benefits of protein (including but not limited to healing, nutritional value , benefits in weight loss, glucose control R, : Fats : Source of fats, benefits of fats. Difference between saturated and unsaturated fats. Saturated fats and its contribution to inflammation R, V, N/A: Fiber: food sources and role of fiber in the diet (including but not limited to its role as a prebiotic, benefits in constipation, role in IBS , role in glucose control and cholesterol level) R, V, N/A: Hydration: role of hydration and prevention of dehydration or over hydration. Foods and water content. R, V, N/A: Vitamins and Minerals in foods and supplements R, : Interpreting food labels, including serving size, macronutrients, vitamins, minerals, allergens, ingredient list , % daily value Patient Instructions: Abstain from alcohol consumption Work on having 3-4 small meals/day , choosing lower fat food options (particularly reducing on saturated fats: cheese sauces, gravies, salami, mena, bologna, prefried food items, heavy sauces, pastries and similar foods )- see list of lower fat food options Include baked fish at least twice a week Keep hydrated by having water with meals/snacks Coding Level of Care Code Nutr Indiv Intake (22082) Diagnoses BMI 34.0-34.9,adult Z68.34 Time Spent (min) 30
[2025-02-28 12:34] VITALS: BMI 33.4
[2025-03-01 21:06] VITALS: BMI 33.5
== END 2025-02-28 13:12 | disposition home or self-care (01) ==
LOC: HO.ENCR 12:19
PROVIDERS: PCP Nurse Practitioner Family; Visit Provider Dietitian, Registered
DX: Z68.34 Body mass index [BMI] 34.0-34.9, adult (principal)

== ENCOUNTER → 2025-02-28 12:17 | Outpatient (BNVA) | payer BC, SELFPAY | PROVIDERS: PCP Nurse Practitioner Family; Visit Provider Dietitian, Registered | DX: E66.9 Obesity, unspecified (principal); Z68.41 Body mass index [BMI] 40.0-44.9, adult | CPT/HCPCS: 97802 ==

== ENCOUNTER 2025-04-20 11:55 | Outpatient (AMB) | payer BC, SELFPAY ==
--- NOTE | 2025-04-20 12:04 | A.OFFPC_ITS ---
Vital Signs 04/20/25 12:05 Height 6 ft 4 in Weight 264 lb BMI 32.1 BP 110/82 Blood Pressure Location Rt brachial Position Sitting Respiration 16 Pulse 93 Pulse Source Pulse Oximeter Temp 98.3 F Temp Source Oral Pulse Oximetry (%) 97 Oxygen Delivery Method Room Air Intake Visit Reasons: 6 months CPE Intake Note: Physical Sole Molder Required: No Allergies No Known Allergies Allergy (Verified 04/20/25 12:14) Medication List - Last Reconciled 04/20/25 by DEBORAH DelgadilloP- dextroamphetamine-amphetamine 15 mg 15 mg PO BID multivitamin 1 tab PO DAILY pantoprazole 40 mg PO QAM sumatriptan succinate (Imitrex) take 1 tab at onset of headache; if no relief may repeat 1 tab after at least 2 hrs; max = 4 tabs/24 hr PO tamsulosin 0.4 mg PO DAILY Tobacco use date assessed: 04/20/25 Dental Screening Dental Screen Date: 11/02/24 HPI HPI Comments History of Present Illness Details 45 y/o M with nocturia, chronic low back pain, obesity, anemia, ADHD, GERD , mild intermittent asthma, osteoarthritis of hands and knees, migraine headaches, elevated LFTS s/p hernia repair with mesh 2012, corrective surgery to left knee, ACL repair left knee Hospitalized for intussusception 2015 at [facility] Family history: Maternal grandfather with hypertension hyperlipidemia heart disease and alcoholism, maternal grandmother with blood cancer, mom with hypertension, cardiovascular disease, clotting disorder, lung cancer and alcoholism (), paternal grand mother with lung cancer, paternal grandfather with hypertension, hyperlipidemia, heart disease, alcoholism and psychiatric disease, dad with high blood pressure hyperlipidemia heart disease and alcoholism () Health Maintenance: Tdap 12/21/20 Flu 04/20/25 HPV 1 vaccine after age 14, interested in completing course. Advised to complete at local pharmacy. Colon - referred for first colon Specialist [facility], cancelled appt, has rescheduled History of Present Illness The patient is a 45-year-old male presenting for a complete physical exam. Obesity: - The patient has a history of obesity w ith a BMI of 32.1 and is working with a shop service technician. - He recently lost 15 pounds quickly, wh ich his shop service technician noted was too fast - His shop service technician advised him to slow h is weight loss to no more than 2 pounds per week. Migraine: - The patient has a history of migraine headaches and uses Imitrex as needed. - He uses the medication sparingly, brennan ng taken only three or four pills in total, to avoid losing its effectiveness. Gastroesophageal reflux disease: - The patient has chronic GERD and takes pantoprazole for management. Nocturia: - He has nocturia, which is managed by andrea silva, and he takes tamsulosin. Attention-deficit hyperactivity disorder: - He has a diagnosis of ADHD and is thony sai with amphetamine salts. Colon cancer screening: - The patient is due for a colonoscopy a nd had a referral in place. - He reports difficulty scheduling the p rocedure due to being unable to connect with the scheduling office by phone, as he does not answer unknown numbers and they did not leave a message. - The patient declined the Cologuard nancy t and prefers to proceed with the colonoscopy. Fatigue: - The patient reports persistent fatigue and the need for a daily nap. - This fatigue is a sudden development, and he can sleep even after taking his ADHD medication. - A sleep study was previously discussed , but he had opted to hold off on it. Steatotic liver disease: - The patient believes his diagnosis of fatty liver disease is due to being overweight and having a bad diet. - Due to this condition, he believes he should not drink alcohol, which he finds upsetting as a loss of choice. Exercise-induced bronchoconstriction: - The patient was diagnosed with sports- induced asthma many years ago. - He uses an albuterol inhaler for short ness of breath after physical activity about three or four times a year. Past Medical History - Obesity with a BMI of 32.1 - Migraine headaches, treated with Imitr ex as needed - Chronic GERD, treated with pantoprazol e - Nocturia, managed by urology with tams ulosin - ADHD, treated with amphetamine salts - Steatotic liver disease - Exercise-induced asthma (sports-induce d), treated with albuterol as needed Past Surgical History - The patient denies any surgeries since his last visit. Family History - The patient denies any new diagnoses i n his family medical history. Social History - Nutrition: The patient is actively wor dennis with a shop service technician for weight loss. - Alcohol Use: The patient states he alvarez s not really drink alcohol, partly because even small amounts (e.g., one beer) can cause a severe hangover resembling a migraine. - Exercise: He reports he is not very ac tive and has experienced muscle loss. Health Maintenance - Colon Cancer Screening: The patient is due for a colonoscopy. - Immunizations: The patient consented t o a flu shot during the visit. - Lab Work: The patient will have nonfas ting blood work done today to check blood counts, thyroid function, and liver enzymes. - Vision: The patient reports his last e ye exam was recent and he has one scheduled shortly. Review of Systems - Constitutional: Reports persistent fat igue requiring daily naps. - Eyes: Reports vision gets a little wo rse every year. - Mouth: Reports very dry mouth, which h e attributes as a side effect of medication. - Respiratory: Reports occasional shortn ess of breath following physical activity. - Genitourinary: Reports nocturia. - Neurological: Reports a history of tad romario headaches. - Musculoskeletal: Reports occasional el bow tendinitis with swelling and soreness, related to computer use. Physical Exam General: Well developed, well nourished, in no acute distress. Appears stated age. Patient has a history of obesity with a BMI of 32.1. Head: Normocephalic, atraumatic. Eyes: Pupils are equal, round and reactive to light and accommodation. Conjunctivae are clear. Scleras nonicteric bilat. Vision grossly normal Ears: TMs clear AU, EACS WNL. No wax noted. Nose: Patent, without discharge. Neck: No carotid bruit bilat. Supple, no adenopathy or thyromegaly. Breast: Edu on SBE Lungs: Clear to auscultation bilaterally. No rales, rhonchi or wheeze noted. Good air flow in all schroeder. Heart: Regular rate and rhythm. No murmurs, click, rubs or gallops are noted. Abdomen: Bowel sounds present in all quadrants. The abdomen is soft, nontender, with no masses or organomegaly noted. No hernias are noted. : Deferred. Reviewed RORY & recommendations Pulses: Peripheral pulses are equal and palpable bilaterally. Extremities: No clubbing, cyanosis nor edema is noted. Neurologic: Gait and station normal. Cranial Nerves 2-12 intact. Motor strength grossly symmetrical and intact. No sensory loss. Balance normal. Skin: No rashes, ulcers, or lesions noted. Turgor is good. Skin color is good. Hair and nails are without abnormalities. Psych: Normal eye contact, affect and mood appropriate, and normal interactions. Patient is alert and appropriate to context. Results Pending Medical Decision Making The patient is a 45-year-old male here for a comprehensive physical exam. His chronic conditions, including obesity, GERD, nocturia, migraines, and ADHD, are stable on current management. The patient's primary focus is on weight management and its relation to his s teatotic liver disease diagnosis. He is working with a shop service technician and has shown good progress, though his initial rapid weight loss was a concern. We discussed a sustainable weight loss strategy, aiming for a BMI under 30 (approx. 240 lbs for his height) before focusing on muscle building to prevent overly restrictive intake and ensure adequate energy for physical activity. His new-onset of significant fatigue, requiring daily naps despite ADHD medication, warrants investigation. We will perform lab work to screen for common causes, including checking a CBC, thyroid panel, and repeating his liver enzymes. A sleep study remains a future consideration if his fatigue does not resolve. For health maintenance, the patient will receive his influenza vaccine today. Despite previous scheduling difficulties, he will proceed with a colonoscopy for colorectal cancer screening and was instructed to call the GI office directly. His albuterol inhaler for exercise-induced bronchoconstriction will be refilled. The patient will follow up in six months to review progress and lab results. Plan 1. Obesity - The patient will continue working with his shop service technician. - He was counseled on achieving a gradua l weight loss down to a goal of approximately 240 lbs. - Will order nonfasting labs today to mo nitor metabolic parameters. 2. Migraine Headaches - The patient uses Imitrex as needed and does not currently require a refill. 3. Gastroesophageal Reflux Disease (Gerd ) - Continue current management with panto prazole. 4. Nocturia - Continue current management with tamsu losin under urology. 5. Attention-Deficit Hyperactivity Disor abdulaziz (Adhd) - Continue current management with amphe tamine salts. 6. Fatigue - To evaluate the patient's fatigue, jay evangelista order labs including a blood count and thyroid panel. - Discussed a sleep study as a potential next step if labs are normal and fatigue persists. 7. Steatotic Liver Disease - The patient was educated that fatty li juan diego does not always lead to severe complications like cirrhosis and can be reversible. - His liver enzymes will be checked with today's blood work. 8. Exercise-Induced Bronchoconstriction - A refill for his albuterol inhaler jay l be sent to his pharmacy. 9. Wellness Visit: Annual Physical Exam - The patient will follow up in [facility]. 10. Preventative Care: Colon Cancer Scre ening - The patient declined Cologuard and con firmed he wants to proceed with a colonoscopy. - He was instructed to call the gastroen terology office directly to schedule his procedure; a printout with the referral information will be provided. 11. Preventative Care: Influenza Vaccina tion - The patient will receive his flu shot today. Patient Instructions - Get your flu shot from the nurse today . - Get a printout of the referral for you r colonoscopy at the front end loader driver, which will have the phone number for the specialist's office. - Please call the specialist's office to schedule your colonoscopy. - After the shot, you will be taken to [facility] lab to have your blood drawn today. - A refill for your albuterol inhaler wi ll be sent to the [facility] pharmacy for you. - Continue to work with your [employer] t on your weight loss goals. - Book your next appointment at the [facility] t desk for six months from now for fu lipids/lfts with labs - I will give you feedback on your lab r esults through the patient portal. Consent Patient was informed and verbally consented to the use of an ambient scribe for clinic note documentation during this visit. [facility] Medical History Migraines Constipation Back injury ACL injury tear Arthritis Asthma Surgical History History of esophagogastroduodenoscopy (EGD) History of repair of ACL History of hernia surgery History of knee surgery Family History Mother Substance abuse Hypertension Cardiovascular disease Clotting disorder Lung cancer Alcoholism Father Substance abuse Hypertension High cholesterol Cardiovascular disease Alcoholism Maternal Grandfather Hypertension High cholesterol Cardiovascular disease Alcoholism Paternal Grandfather Hypertension High cholesterol Cardiovascular disease Alcoholism Mental health disorder Maternal Grandmother Cancer Paternal Grandmother Lung cancer Social History Household Members: Significant Other and Other Both parents involved: No Caregiver staying overnight: No Housing: House Are you a primary hourly caregiver to a significant other at home: No Do you presently have visiting nurse or other home services: No 75 years or older and lives alone: No Alcohol intake: current Alcohol intake frequency: a few times a month Patient Tobacco Use Status: Never used Tobacco e-Cigarette/Vaping Use: Never Used service: No Current occupational status: employed 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 1. Little interest or pleasure in doing things: not at all 2. Feeling down, depressed, or hopeless: not at all 3. Trouble falling or staying asleep, or sleeping too much: not at all 4. Feeling tired or having little energy: not at all 5. Poor appetite or overeating: not at all 6. Feeling bad about yourself - or that you are a failure or have let yourself or your family down: not at all 7. Trouble concentrating on things, such as reading the newspaper or watching television: not at all 8. Moving or speaking so slowly that other people could have noticed. Or the op posite - being so fidgety or restless that you have been moving around a lot more than usual: not at all 9. Thoughts that you would be better off or of hurting yourself in some way: not at all Total score: 0 Depression Screening Interpretation: Negative Depression Screening Done: Yes 64590 - PHQ-9 Billing: Yes Source: Developed by Drs. Fred De La Garza, Jenny Craig, Neal Collier and colleagues, with an educational klaus from [employer]. Thrive Questionnaire Date Thrive assessed: 11/02/24 I am a: Patient What is your living situation today?: I choose not to answer this question Within the past 12 months, did the food you bought not last and you didn't have the money to get more?: I choose not to answer this question Within the past 12 months, did you worry whether your food would run out before you got money to buy more?: I choose not to answer this question Do you have trouble paying for medicines?: I choose not to answer this question Do you have trouble getting transportation to medical appointments?: I choose not to answer this question Do you have trouble paying your heating and electricity bill?: I choose not to answer this question Do you have trouble taking care of your child, family member or friend?: I choose not to answer this question Do you have trouble with day-to-day activities such as bathing, preparing meals, shopping, managing finances, etc.?: I choose not to answer this question Are you currently unemployed and looking for a job?: I choose not to answer this question Are you interested in more education?: I choose not to answer this question Please select the resources that you would like help with: None Currently or been in a relationship where the following occur: I choose not to answer THRIVE Score: 0 AUDIT C Alcohol Use Questionnaire (AUDIT-C) 1. How often do you have a drink containing alcohol?: Never 3. How often do you have six or more drinks on one occasion?: Never Total Score: 0 Score Reviewed/Action Taken: Yes RONALDO-7 AMB Questionnaire RONALDO-7 Date RONALDO - 7 assessed: 11/02/24 Feeling nervous, anxious, or on edge: 0 = Not at all Not being able to stop or control worryin = Not at all Worrying too much about different things: 0 = Not at all Trouble relaxin = Not at all Being so restless that it is hard to sit still: 0 = Not at all Becoming easily annoyed or irritable: 0 = Not at all Feeling afraid as if something awful might happen: 0 = Not at all Total RONALDO-7 score (0-4 normal; 5-9 mild; 10-14 moderate; 15-21 severe): 0 Source: Developed by Drs. Fred De La Garza, Jenny Craig, Neal Collier and colleagues, with an educational klaus from mobli. Physical exam (Primary Care) Vital Signs: Last Vital Signs Temp 98.3 F 04/20/25 12:05 Pulse 93 04/20/25 12:05 Resp 16 04/20/25 12:05 BP 110/82 04/20/25 12:05 Pulse Ox 97 04/20/25 12:05 Oxygen Delivery Method Room Air 04/20/25 12:05 BMI result Body Mass Index 32.1 Tobacco/Smoking Status: Tobacco use Status Tobacco use date assessed 04/20/25 04/20/25 12:10 Patient Tobacco Use Status Never used Tobacco 04/20/25 12:10 e-Cigarette/Vaping Use Never Used 04/20/25 12:10 PHQ-9: PHQ-9 Score PHQ-9: Total score 0 04/20/25 12:14 Depression Screening Interpretation: Negative Thrive Assessment: Date of Thrive Assessment Date Thrive assessed 11/02/24 04/20/25 12:10 Currently or been in a relationship where the following occur: I choose not to answer Office Procedures Flu Questionnaire Does the patient have a severe egg allergy?: No Does the patient have severe life threatening allergies?: No Does the patient have a fever or illness today?: No Has the patient ever had Guillain-[place]cad[place] Syndrome?: No Has the patient ever had any past reaction to a flu shot?: No Immunizations Fluarix [id number] (PF) 45 mcg (15 mcg x 3)/0.5 mL IM syringe Performing Provider: GARY Delgadillo Performing Location: [facility] [place] Family Medicine Administered by: Alex Jhaveri MA on 04/20/25 12:46 Dose Route Admin Location Dispensed Lot Number Expiration Date [employer] Building [employer]or 0.5 mL IM Right Deltoid 0.5 mL [id number] 12/13/25 42371-602-07 [employer] VIS Given Date VIS Provided VIS Publication Date 04/20/25 Single Vaccine 24 Eligibility Eligibility Date Funding Source Not [facility] Eligible 04/20/25 Private Coding Level of Care Code Est Pt Prev Care 40-64y(78707) Diagnoses Adult general medical exam Z00.00 Elevated liver enzymes R74.8 Borderline high cholesterol E78.9 Laboratory exam ordered as part of routine general medical examination Z00.00 Influenza vaccination administered at current visit Z23 Obesity, Class I, BMI 30.0-34.9 (see actual BMI) E66.811 Gastroesophageal reflux disease with esophagitis without hemorrhage K21.00 Esophagitis bleeding: without hemorrhage Esophagitis presence: with esophagitis Screen for colon cancer Z12.11 Additional Codes PHQ-9 - 43957 - PHQ-9 Billing: Yes ([id number]) Assessment & Plan Assessment & Plan (1) Adult general medical exam: Onset Date: ~04/20/25 Code(s): Z00.00 - Encounter for general adult medical examination without abnormal findings Category: Medical (2) Elevated liver enzymes: Code(s): R74.8 - Abnormal levels of other serum enzymes Category: Medical (3) Borderline high cholesterol: Code(s): E78.9 - Disorder of lipoprotein metabolism, unspecified Category: Medical (4) Laboratory exam ordered as part of routine general medical examination: Code(s): Z00.00 - Encounter for general adult medical examination without abnormal findings Category: Medical (5) Influenza vaccination administered at current visit: Onset Date: ~04/20/25 Code(s): Z23 - Encounter for immunization Category: Medical (6) Obesity, Class I, BMI 30.0-34.9 (see actual BMI): Code(s): E66.811 - Obesity, class 1 Category: Medical (7) GERD (gastroesophageal reflux disease): Code(s): K21.9 - Gastro-esophageal reflux disease without esophagitis Category: Medical Qualifiers: Esophagitis bleeding: without hemorrhage Esophagitis presence: with esophagitis Qualified Code(s): K21.00 - Gastro-esophageal reflux disease with esophagitis, without bleeding (8) Screen for colon cancer: Code(s): Z12.11 - Encounter for screening for malignant neoplasm of colon Category: Medical Plan . Orders: Orders Lipid Panel Today E78.9 - Disorder of lipoprotein metabolism, unspecified, R74.8 - Abnormal levels of other serum enzymes, Z00.00 - Encounter for general adult medical examination without abnormal findings TSH reflex Free T4 Today E78.9 - Disorder of lipoprotein metabolism, unspecified, R74.8 - Abnormal levels of other serum enzymes, Z00.00 - Encounter for general adult medical examination without abnormal findings Vitamin B12 and Folate Today E78.9 - Disorder of lipoprotein metabolism, unspecified, R74.8 - Abnormal levels of other serum enzymes, Z00.00 - Encounter for general adult medical examination without abnormal findings Vitamin D 25-OH Total Today E78.9 - Disorder of lipoprotein metabolism, unspecified, R74.8 - Abnormal levels of other serum enzymes, Z00.00 - Encounter for general adult medical examination without abnormal findings Comprehensive Met. Panel 6 Months E78.9 - Disorder of lipoprotein metabolism, unspecified, R74.8 - Abnormal levels of other serum enzymes Influenza [id number] Immunization Today Z23 - Encounter for immunization Complete Blood Count no Diff Today E78.9 - Disorder of lipoprotein metabolism, unspecified, R74.8 - Abnormal levels of other serum enzymes, Z00.00 - Encounter for general adult medical examination without abnormal findings Comprehensive Met. Panel Today E78.9 - Disorder of lipoprotein metabolism, unspecified, R74.8 - Abnormal levels of other serum enzymes, Z00.00 - Encounter for general adult medical examination without abnormal findings Microalbumin, Random (w Creat) Today E78.9 - Disorder of lipoprotein metabolism, unspecified, R74.8 - Abnormal levels of other serum enzymes, Z00.00 - Encounter for general adult medical examination without abnormal findings Lipid Panel 6 Months E78.9 - Disorder of lipoprotein metabolism, unspecified, R74.8 - Abnormal levels of other serum enzymes Medications: New albuterol sulfate 90 mcg/actuation 2 puffs inhalation Q4-6H PRN 8.5 grams 0RF shortness of breath or wheezing 30 days Patient Instructions: Health screenings for men You should visit your health care provider regularly, even if you feel healthy. The purpose of these visits is to: Screen for medical issues Assess your risk for future medical problems Encourage a healthy lifestyle Update vaccinations and other preventive care services Help you get to know your provider in case of an illness Information Even if you feel fine, you should still see your provider for regular checkups. These visits can help you avoid problems in the future. For example, the only way to find out if you have high blood pressure is to have it checked regularly. High blood sugar and high cholesterol level also may not have any symptoms in the early stages. Simple blood tests can check for these conditions. There are specific times when you should see your provider or receive specific health screenings. The [place] Preventive Services Task Force publishes a list of recommended screenings. Below are screening guidelines for men ages 40 to 64. BLOOD PRESSURE SCREENING Have your blood pressure checked at least once every year. Watch for blood pressure screenings in your area. Ask your provider if you can stop in to have your blood pressure checked. Ask your provider if you need your blood pressure checked more often if: You have diabetes, heart disease, kidney problems, or are overweight or have certain other health conditions You have a first-degree relative with high blood pressure You are Black Your blood pressure top number is from 120 to 129 mm Hg, or the bottom number is from 70 to 79 mm Hg If the top number is 130 mm Hg or greater or the bottom number is 80 mm Hg or greater, this is considered stage 1 hypertension. Schedule an appointment with your provider to learn how you can lower your blood pressure. Effects of age on blood pressure CHOLESTEROL SCREENING Cholesterol screening should begin at age 35 for men with no known risk factors for coronary heart disease. Repeat cholesterol screening should take place: Every 5 years for men with normal cholesterol levels More often if changes occur in lifestyle (including weight gain and diet) More often if you have diabetes, heart disease, kidney problems, or certain other conditions COLORECTAL CANCER SCREENING If you are under age 45, talk to your provider about getting screened. You may need to be screened if you have a strong family history of colon cancer or polyps. Screening may also be considered if you have risk factors such as a history of inflammatory bowel disease or polyps. If you are age 45 to 75, you should be screened for colorectal cancer. There are several screening tests available: A stool-based fecal occult blood (gFOBT) or fecal immunochemical test (FIT) every year A stool sDNA test every 1 to 3 years Flexible sigmoidoscopy every 5 years or every 10 years with stool testing FIT done every year CT colonography (virtual colonoscopy) every 5 years Colonoscopy every 10 years You may need a colonoscopy more often if you have risk factors for colorectal cancer, such as: Ulcerative colitis A personal or family history of colorectal cancer A history of growths in your colon called adenomatous polyps DENTAL EXAM Go to the dentist once or twice every year for an exam and cleaning. Your dentist will evaluate if you have a need for more frequent visits. DIABETES SCREENING All adults who do not have risk factors for diabetes should be screened starting at age 35 and repeated every 3 years. If you have other risk factors for diabetes, such as a first degree relative with diabetes, overweight or obesity, high blood pressure, prediabetes, or a history of heart disease, you may be tested more often. If you are overweight and have other risk factors, such as high blood pressure and are planning to become , screening is recommended. EYE EXAM Have an eye exam every 2 to 4 years ages 40 to 54 and every 1 to 3 years ages 55 to 64. Your provider may recommend more frequent eye exams if you have vision problems or glaucoma risk. Have an eye exam that includes an examination of your retina (back of your eye) at least every year if you have diabetes. IMMUNIZATIONS Commonly needed vaccines include: Flu shot: get one every year COVID-19 vaccine: ask your provider what is best for you Tetanus-diphtheria and acellular pertussis (Tdap) vaccine: have as one of your tetanus-diphtheria vaccines if you did not receive it as an adolescent Tetanus-diphtheria: have a booster (or Tdap) every 10 years Varicella vaccine: receive 2 doses if you never had chickenpox or the varicella vaccine and were born in 1979 or after Hepatitis B vaccine: receive 2, 3, or 4 doses, depending on your exact circumstances, if you did not receive these as a child or adolescent, until age 59 Shingles (herpes zoster) vaccine: at or after age 50 Ask your provider if you should receive other immunizations, especially if you have certain medical conditions, such as diabetes or are at increased risk for some diseases such as pneumonia. INFECTIOUS DISEASE SCREENING Screening for hepatitis C: all adults ages 18 to 79 should get a one-time test for hepatitis C. Screening for human immunodeficiency virus (HIV): all people ages 15 to 65 should get a one-time test for HIV. Depending on your lifestyle and medical history, you may need to be screened for infections such as syphilis, chlamydia, and other infections. LUNG CANCER SCREENING You should have an annual screening for lung cancer with low-dose computed tomography (LDCT) if: You are age 50 to 80 years AND You have a 20 pack-year smoking history AND You currently smoke or have quit within the past 15 years OSTEOPOROSIS SCREENING If you are age 50 to 64 and have risk factors for osteoporosis, you should discuss screening with your provider. Risk factors can include long-term steroid use, low body weight, smoking, heavy alcohol use, having a fracture after age 50, or a family history of hip fracture or osteoporosis. Osteoporosis PHYSICAL EXAM All adults should visit their provider from time to time, even if they are healthy. The purpose of these visits is to: Screen for diseases Assess risk of future medical problems Encourage a healthy lifestyle Update vaccinations and other preventive care services Maintain a relationship with a provider in case of an illness Your height, weight, and body mass index (BMI) should be checked at every exam. During your exam, your provider may ask you about: Depression and anxiety Diet and exercise Alcohol and tobacco use Safety, such as use of seat belts and smoke detectors Your medicines and risk for interactions PROSTATE CANCER SCREENING If you're 55 through 69 years old, before having the test, talk to your provider about the pros and cons of having a PSA test. Ask about: Whether screening decreases your chance of dying from prostate cancer. Whether there is any harm from prostate cancer screening, such as side effects from testing or overtreatment of cancer when discovered. Whether you have a higher risk of prostate cancer than others. If you are age 55 or younger, screening is not generally recommended. You should talk with your provider about if you have a higher risk for prostate cancer. Risk factors include: Having a family history of prostate cancer (especially a brother or father) Being If you choose to be tested, the PSA blood test is repeated over time (yearly or less often), though the best frequency is not known. Prostate examinations are no longer routinely done on men with no symptoms. Prostate cancer SKIN EXAM Your provider may check your skin for signs of skin cancer, especially if you're at high risk. People at high risk include those who have had skin cancer before, have close relatives with skin cancer, or have a weakened immune system. TESTICULAR EXAM The [place] Preventive Services Task Force (USPSTF) now recommends against performing testicular self-exams. Doing testicular self-exams has been shown to have little to no benefit.
[2025-04-20 12:05] VITALS: BP 110/82; PULSE 93; RESP 16; TEMP 36.8; O2SAT 97; BMI 32.1
== END 2025-04-20 12:47 | disposition home or self-care (01) ==
LOC: HO.HMCFM 11:56
PROVIDERS: PCP Nurse Practitioner Family; Visit Provider Nurse Practitioner Family
DX: Z00.00 Encounter for general adult medical examination without abnormal findings (principal); R74.8 Abnormal levels of other serum enzymes; E78.9 Disorder of lipoprotein metabolism, unspecified; Z68.32 Body mass index [BMI] 32.0-32.9, adult; E66.811 Obesity, class 1; K21.00 Gastro-esophageal reflux disease with esophagitis, without bleeding; Z12.11 Encounter for screening for malignant neoplasm of colon; Z23 Encounter for immunization

== ENCOUNTER 2025-04-20 11:55 | Outpatient (REF) | payer BC, SELFPAY ==
[2025-04-20 14:20] LABS: Hematocrit 44.7 % (42.0-52.0); Hemoglobin 14.9 g/dl (14.0-18.0); Mean Corpuscular HGB Conc 33.3 g/dl (31.0-36.0); Mean Corpuscular Hemoglobin 31.1 pg (27.0-33.0); Mean Corpuscular Volume 93.3 fL (80.0-98.0); NRBC Abs Auto 0.000 X10*3/uL (0.0-0.012); NRBC Pct Auto 0.0 /100WBC (0.0-0.2); Platelet Count 422 X10*3/uL (160-400); Red Blood Count 4.79 X10*6/uL (4.60-5.80); White Blood Count 7.2 X10*3/uL (4.8-10.8)
[2025-04-20 14:40] LABS: Microalbum/Creatinine Ratio Ur 9.1 ug/mg cr (<30)
[2025-04-20 14:48] LABS: Alanine Aminotransferase 53 U/L (0-40); Albumin Level 4.8 g/dL (3.5-5.0); Alkaline Phosphatase 67 U/L (39-117); Anion Gap 12 (12-20); Aspartate Amino Transferase 40 U/L (5-37); Blood Urea Nitrogen 13 mg/dL (9-16); Calcium 9.4 mg/dL (8.4-10.2); Carbon Dioxide 30 mmol/L (22-29); Chloride 104 mmol/L (96-108); Cholesterol 171 mg/dL (<200); Estimated Glomerular Filt Rate > 60; HDL Cholesterol 38 mg/dL (>40); Potassium 4.1 mmol/L (3.3-5.1); Sodium 142 mmol/L (135-145); Total Protein 7.8 g/dL (6.5-8.0); Triglycerides 151 mg/dL (<150)
[2025-04-20 15:18] LABS: Folate 13.6 ng/mL (> or = 4.0); Vitamin B12 373 pg/mL (200-900)
== END 2025-04-20 11:56 | disposition home or self-care (01) ==
LOC: HO.WFDLDS 11:55
PROVIDERS: PCP Nurse Practitioner Family; Visit Provider Nurse Practitioner Family
DX: Z00.00 Encounter for general adult medical examination without abnormal findings (principal); E78.9 Disorder of lipoprotein metabolism, unspecified; R74.8 Abnormal levels of other serum enzymes; E55.9 Vitamin D deficiency, unspecified; K21.9 Gastro-esophageal reflux disease without esophagitis; R35.1 Nocturia; F90.9 Attention-deficit hyperactivity disorder, unspecified type; R53.83 Other fatigue; K76.0 Fatty (change of) liver, not elsewhere classified; J45.990 Exercise induced bronchospasm; E66.9 Obesity, unspecified; K21.00 Gastro-esophageal reflux disease with esophagitis, without bleeding; G43.909 Migraine, unspecified, not intractable, without status migrainosus; Z23 Encounter for immunization; Z68.32 Body mass index [BMI] 32.0-32.9, adult
CPT/HCPCS: 36415; 80053; 80061; 82043; 82306; 82570; 82607; 82746; 84443; 85027; 90471; 90656; 96127